=== PATIENT | male | born 1945 | race Caucasian/White ===

== ENCOUNTER 2016-10-21 22:56 | Emergency (ER) | payer MEDICARE, BC, OTHER ==
[~2016-10-21 22:56] MED LIST: ATOR1TAB19 PO; AZEL0.05 OP; AZOR5TAB4 PO; FISH500C PO; FLUTISP; REST0.05 OP; VITA100037 PO; VITA500T53 PO; [UNRECOGNIZED DRUG - OTHER] PO
[2016-10-22 00:19] LABS: BASO % 0.2 % (0.0-1.0); EOS # 0.1 K/mm3 (0.0-0.50); EOS % 1.5 % (0.0-3.0); LARGE UNSTAINED CELL # 0.2 K/mm3 (0.0-0.4); LARGE UNSTAINED CELL % 1.9 % (0.0-4.0); LYMPH # 2.1 K/mm3 (1.5-4.5); LYMPH % 22.6 % (24.0-44.0); MEAN CORPUSCULAR HEMOGLOBIN 32.7 pg (27.0-33.0); MEAN CORPUSCULAR HGB CONC 34.4 g/dl (32.0-36.5); MEAN CORPUSCULAR VOLUME 95.1 fl (80.0-96.0); MONO # 0.6 K/mm3 (0.0-0.8); MONO % 6.6 % (0.0-5.0); NEUTROPHILS # 6.3 K/mm3 (1.8-7.7); NEUTROPHILS % 67.3 % (36.0-66.0); PLATELET COUNT, AUTOMATED 145 k/mm3 (150-450); RED CELL DISTRIBUTION WIDTH 12.2 % (11.5-14.5); WHITE BLOOD COUNT 9.3 K/mm3 (4.0-10.0)
[2016-10-22 00:27] LABS: INR 0.95
[2016-10-22 00:38] LABS: ANION GAP 8 MEQ/L (8-16); BLOOD UREA NITROGEN 18 MG/DL (7-18); CALCIUM LEVEL 8.7 MG/DL (8.8-10.2); CARBON DIOXIDE LEVEL 28 MEQ/L (21-32); CHLORIDE LEVEL 106 MEQ/L (98-107); CREATININE FOR GFR 0.83 MG/DL (0.70-1.30); GLOMERULAR FILTRATION RATE > 60.0 (>42); GLUCOSE, FASTING 99 MG/DL (83-110); POTASSIUM SERUM 4.1 MEQ/L (3.5-5.1); SODIUM LEVEL 142 MEQ/L (136-145)
--- NOTE | 2016-10-22 01:30 | REPUSA ---
CLINICAL HISTORY: Dizzy. TECHNIQUE: Multiple axial CT images were obtained through the brain without IV contrast material. COMMENTS: There is normal configuration of sella turcica. There are no intra or extra-axial collections. There is no mass effect or midline shift. There is no evidence of hematoma formation. No hydrocephalus is p resent. The ventricles are symmetrical. No abnormal calcifications are present. There is diffuse age-appropriate cerebellar and cerebral atrophy with proportionally dilated ventricl es and cortical sulci. There are bilateral periventricular and subcortical white matter hypolucencies compatible with mild c hronic microvascular disease. Otherwise, no significant focal abnormalities are seen either in the posterior fossa or supratentoria l compartment. IMPRESSION: 1. Age-appropriate cerebellar and cerebral atrophy. 2. Mild chronic microvascular disease. 3. No evidence of acute intracranial pathology. Thank you for your kind referral of this patient.
[2016-10-22] MEDS ORDERED: MECLIZINE 12.5 MG TAB As Ordered ONE (02:23)
--- NOTE | 2016-10-22 03:59 | EDDOCDS ---
Physician Documentation [facility] Name: Thomas Ramos Age: 71 yrs Sex: Male : 1945 Arrival Date: 10/21/2016 Time: 22:56 Bed 8 Private MD: Rajendra Phelps Disposition: 10/22/16 03:34 Discharged to Home/Self Care. Impression: Labyrinthitis, Nocturia. - Condition is Stable. - Prescriptions for Meclizine 25 mg Oral Tablet - take 1 tablet by ORAL route every 8 hours As needed; 30 tablet. - Medication Reconciliation, Local Pharmacy Hours form. - Follow up: Rajendra Phelps; When: 1 - 2 days; Reason: Recheck today's complaints. - Problem is an ongoing problem. - Symptoms have improved. Historical: - Allergies: Erythromycin; - Home Meds: 1. Sharyn oral oral Unknown once daily 2. atorvastatin oral oral Unknown once daily 3. Gabapentin Oral Unknown once daily 4. Vitamin D Unknown Oral Unknown daily 5. Vitamin B-12 Oral Unknown daily 6. aspirin 81 mg Oral tab 1 tab once daily 7. Metoprolol Tartrate Oral Unknown once daily - PMHx: Hypertension; hyperlipidemia; Colitis; - PSHx: Cardiac Ablation; Hernia repair; - Social history: Smoking status: Cigars No barriers to communication noted, The patient speaks fluent Divehi, Speaks appropriately for age. - Family history: Not pertinent. - : The pt / caregiver states he / she is not on anticoagulants. Home medication list is obtained from the patient. - Exposure Risk Screening:: None identified. Vital Signs: 10/21 22:58 BP 134 / 66; Pulse 78; Resp 18 S; Temp 97.1(O); Pulse Ox 99% on R/A; Weight 87.09 kg / dd6 192 lbs (R); Height 6 ft. 0 in. (182.88 cm); 23:17 BP 135 / 78 (auto/); kas2 23:19 Pulse 62 MON; Pulse Ox 96% ; kas2 23:19 Resp 20; Temp 98.0(O); Pain 0/10; kas2 23:32 BP 120 / 71 (auto/); kas2 23:32 Pulse 64 MON; Pulse Ox 92% ; kas2 23:47 BP 122 / 71 (auto/); kas2 23:47 Pulse 68 MON; Pulse Ox 94% ; kas2 10/22 00:02 BP 139 / 80 (auto/); kas2 00:02 Pulse 66 MON; Pulse Ox 96% ; kas2 00:12 BP 117 / 67 (auto/); kas2 00:12 Pulse 64 MON; Pulse Ox 94% ; kas2 00:13 BP 130 / 75 (auto/); kas2 00:13 Pulse 64 MON; Pulse Ox 95% ; kas2 00:14 BP 132 / 78 (auto/); kas2 00:14 Pulse 62 MON; Pulse Ox 95% ; kas2 00:17 BP 121 / 71 (auto/); kas2 00:17 Pulse 66 MON; Pulse Ox 96% ; kas2 00:22 BP 117 / 67 LA Supine; Pulse 62; kas2 00:22 BP 130 / 75 LA Sitting; Pulse 69; kas2 00:22 BP 132 / 78 LA Standing; Pulse 79; kas2 00:32 BP 133 / 77 (auto/); kas2 00:32 Pulse 70 MON; kas2 00:47 BP 107 / 67 (auto/); kas2 00:47 Pulse 64 MON; Pulse Ox 96% ; kas2 01:02 BP 109 / 65 (auto/); kas2 01:02 Pulse 64 MON; Pulse Ox 94% ; kas2 01:17 BP 121 / 80 (auto/); kas2 01:17 Pulse 66 MON; Pulse Ox 94% ; kas2 01:32 BP 114 / 67 (auto/); kas2 01:32 Pulse 68 MON; Pulse Ox 94% ; kas2 03:27 BP 128 / 65; Pulse 62; Resp 20; Temp 97.2(O); Pulse Ox 98% on R/A; Pain 0/10; kas2 03:56 BP 168 / 74; Pulse 62; Resp 20; Temp 98.3(O); Pulse Ox 99% on R/A; Pain 0/10; kas2 10/21 22:58 Body Mass Index 26.04 (87.09 kg, 182.88 cm) dd6 MDM: 10/21 23:11 ECG WITH READING ER PHYS+CARDIAG ordered. EDMS 23:32 Call Center Operator/Pulse Ox/q 15 min VS ordered. le 23:32 Accucheck ordered. le 23:32 IV Saline Lock ordered. le 23:32 Rhythm Strip to chart ordered. le 23:32 Orthostatic VS ordered. le 23:33 Basic Metabolic Profile Ordered. EDMS 23:33 CBC with Diff Ordered. EDMS 23:33 Partial Thromboplastin Time Ordered. EDMS 23:33 Prothrombin Time Profile\E\INR Ordered. EDMS 23:33 CT Head Without Contrast Ordered. EDMS 23:33 Chest, 2 View (pa\E\lat) Ordered. EDMS 10/22 01:21 Financial registration complete. hs2 01:30 [facility] Payment Agreement was scanned into [employer] and attached to record. hs2 01:59 Basic Metabolic Profile Reviewed. cs11 01:59 CBC with Diff Reviewed. cs11 01:59 Partial Thromboplastin Time Reviewed. cs11 01:59 Prothrombin Time Profile\E\INR Reviewed. cs11 01:59 Fingerstick Blood Sugar Reviewed. cs11 01:59 CT Head Without Contrast Reviewed. cs11 02:11 NS 0.9% 1000 ml IV at bolus once ordered. cs11 02:11 Meclizine 50 mg PO once ordered. cs11 Point of Care Testing: Blood Glucose: 00:22 Blood Glucose: 91 mg/dL; kas2 Ranges: Administered Medications: 02:27 Drug: NS 0.9% 1000 ml [sodium chloride 0.9 % intravenous solution] Route: IV; Rate: kas2 bolus; Site: right antecubital; 03:26 Follow up: IV Status: Completed infusion; IV Intake: 1000ml kas2 02:27 Drug: Meclizine 50 mg [meclizine 12.5 mg tablet (4 tabs)] Route: PO; kas2 Signatures: [facility] EDTN Evelyn Gil, FREDERICK DIPLOMATIC INTERPRETER/TRANSLATORNatanael Saha, DO cs11 Gilmer VelázquezRN RN Carol Hicks, Reg Reg hs2 Marj Hernandez RN RN kas2 The chart was reviewed and I authenticate all verbal orders and agree with the evaluation and treatment provided.Attachments: 01:30 [facility] Payment Agreement hs2 MTDD
--- NOTE | 2016-10-22 03:59 | EDDOCDS ---
Nurse's Notes [facility] Name: Thomas Ramos Age: 71 yrs Sex: Male : 1945 Arrival Date: 10/21/2016 Time: 22:56 Bed 8 Private MD: Rajendra Phelps Diagnosis: Labyrinthitis;Nocturia Presentation: 10/21 23:01 Presenting complaint: Patient states: Patient reports having blurriness and dizziness. b Called both primary and animal assisted therapist whom stated that he should be seen. Adult Sepsis Screening: The patient does not have new or worsening altered mentation. Patient's respiratory rate is less than 22. Systolic blood pressure is greater than 100. Patient has a qSOFA score of 0- Negative Sepsis Screen. Suicide/Homicide risk assessment- the patient denies having any suicidal and/or homicidal ideations and does not present with any other emotional, behavioral or mental health complaints. Status: Patient is not a sales service rep or dependent. Transition of care: patient was not received from another setting of care. 23:01 Acuity: VALERIE Level 3 [facility] 23:01 Method Of Arrival: Walkin/Carried/Asstd [facility] Triage Assessment: 23:04 General: Appears in no apparent distress. Pain: Denies pain. Neurological: Level of [facility] Consciousness is awake, alert, obeys commands, Oriented to person, place, time, Speech is normal, Facial symmetry appears normal, Facial symmetry: tongue is midline. Respiratory: Airway is patent Respiratory effort is even, unlabored, Respiratory pattern is regular, symmetrical. Derm: Skin is pink, warm & dry. Musculoskeletal: Range of motion intact in all extremities. Historical: - Allergies: Erythromycin; - Home Meds: 1. Sharyn oral oral Unknown once daily 2. atorvastatin oral oral Unknown once daily 3. Gabapentin Oral Unknown once daily 4. Vitamin D Unknown Oral Unknown daily 5. Vitamin B-12 Oral Unknown daily 6. aspirin 81 mg Oral tab 1 tab once daily 7. Metoprolol Tartrate Oral Unknown once daily - PMHx: Hypertension; hyperlipidemia; Colitis; - PSHx: Cardiac Ablation; Hernia repair; - Social history: Smoking status: Cigars No barriers to communication noted, The patient speaks fluent Swazi, Speaks appropriately for age. - Family history: Not pertinent. - : The pt / caregiver states he / she is not on anticoagulants. Home medication list is obtained from the patient. - Exposure Risk Screening:: None identified. Screenin/15 00:21 Screening information is obtained from the patient. Fall risk: No risks identified. kas2 Assistance ADL's: requires no assistance with activities of daily living. Abuse/DV Screen: The patient / caregiver reports he/she is: not in a situation that causes fear, pain or injury. Nutritional screening: No deficits noted. Advance Directives: Currently, there is no health care proxy. There is no active DNR order. There is no living will. There is no Power of National Stormwater Leader. home support is adequate. Assessment: 10/21 23:30 General: Appears in no apparent distress, comfortable, well nourished, well groomed, kas2 Behavior is appropriate for age, cooperative. Pain: Denies pain. Neurological: Level of Consciousness is awake, alert, Oriented to person, place, time. Cardiovascular: Capillary refill < 3 seconds Heart tones S1 S2 present Rhythm is sinus rhythm No ectopy. Respiratory: Airway is patent Respiratory effort is even, unlabored, Respiratory pattern is regular, symmetrical, Breath sounds are clear bilaterally. Derm: Skin is intact, is healthy with good turgor, Skin is dry, Skin is pink, warm & dry. Skin temperature is warm. 10/22 00:45 General: Patient sitting up in bed. Denies pain or discomfort at this time. Appears kas2 comfortable. No apparent distress noted. Call santana within reach. Will continue to monitor at this time.. 01:50 General: Appears in no apparent distress, comfortable, Behavior is appropriate for age, kas2 cooperative. Pain: Denies pain. Neurological: Level of Consciousness is awake, alert, Oriented to person, place, time. Cardiovascular: Rhythm is sinus rhythm No ectopy. Respiratory: Airway is patent Respiratory effort is even, unlabored, Respiratory pattern is regular, symmetrical. Derm: Skin Skin is dry, Skin is pink, warm & dry. Skin temperature is warm. 02:56 General: Patient sleeping at this time. No apparent distress. Appears comfortable. kas2 Airway patent. Respiratory effort even and unlabored. Call santana within reach. Will continue to monitor.. 03:10 General: Appears in no apparent distress, comfortable, Behavior is appropriate for age, kas2 cooperative. Pain: Denies pain. Neurological: Level of Consciousness is awake, alert, Oriented to person, place, time. Cardiovascular: Rhythm is sinus rhythm No ectopy. Respiratory: Airway is patent Respiratory effort is even, unlabored, Respiratory pattern is regular, symmetrical, Breath sounds are clear. Derm: Skin is intact, Skin is dry, Skin is pink, warm & dry. Skin temperature is warm. Vital Signs: 10/21 22:58 BP 134 / 66; Pulse 78; Resp 18 S; Temp 97.1(O); Pulse Ox 99% on R/A; Weight 87.09 kg dd6 (R); Height 6 ft. 0 in. (182.88 cm); 23:17 BP 135 / 78 (auto/); kas2 23:19 Pulse 62 MON; Pulse Ox 96% ; kas2 23:19 Resp 20; Temp 98.0(O); Pain 0/10; kas2 23:32 BP 120 / 71 (auto/); kas2 23:32 Pulse 64 MON; Pulse Ox 92% ; kas2 23:47 BP 122 / 71 (auto/); kas2 23:47 Pulse 68 MON; Pulse Ox 94% ; kas2 10/22 00:02 BP 139 / 80 (auto/); kas2 00:02 Pulse 66 MON; Pulse Ox 96% ; kas2 00:12 BP 117 / 67 (auto/); kas2 00:12 Pulse 64 MON; Pulse Ox 94% ; kas2 00:13 BP 130 / 75 (auto/); kas2 00:13 Pulse 64 MON; Pulse Ox 95% ; kas2 00:14 BP 132 / 78 (auto/); kas2 00:14 Pulse 62 MON; Pulse Ox 95% ; kas2 00:17 BP 121 / 71 (auto/); kas2 00:17 Pulse 66 MON; Pulse Ox 96% ; kas2 00:22 BP 117 / 67 LA Supine; Pulse 62; kas2 00:22 BP 130 / 75 LA Sitting; Pulse 69; kas2 00:22 BP 132 / 78 LA Standing; Pulse 79; kas2 00:32 BP 133 / 77 (auto/); kas2 00:32 Pulse 70 MON; kas2 00:47 BP 107 / 67 (auto/); kas2 00:47 Pulse 64 MON; Pulse Ox 96% ; kas2 01:02 BP 109 / 65 (auto/); kas2 01:02 Pulse 64 MON; Pulse Ox 94% ; kas2 01:17 BP 121 / 80 (auto/); kas2 01:17 Pulse 66 MON; Pulse Ox 94% ; kas2 01:32 BP 114 / 67 (auto/); kas2 01:32 Pulse 68 MON; Pulse Ox 94% ; kas2 03:27 BP 128 / 65; Pulse 62; Resp 20; Temp 97.2(O); Pulse Ox 98% on R/A; Pain 0/10; kas2 03:56 BP 168 / 74; Pulse 62; Resp 20; Temp 98.3(O); Pulse Ox 99% on R/A; Pain 0/10; kas2 10/21 22:58 Body Mass Index 26.04 (87.09 kg, 182.88 cm) dd6 Vitals: 10/21 22:58 Log In Time: October 21, 2016 at 22:56. RN notified that patient meets Red Flag dd6 criteria. ED Course: 22:58 Patient visited by Johnson Carrion PCA. dd6 22:58 Rajendra Phelps is Private Physician. dd6 22:58 Patient moved to Waiting dd6 23:02 Triage Initiated jmb 23:06 Marj Hernandez RN is Primary Nurse. jmb 23:06 Patient moved to 8 jmb 23:28 Patient visited by Marj Hernandez RN. kas2 23:36 Natanael Valadez DO is Attending Physician. cs11 23:36 Patient visited by Natanael Valadez DO. cs11 10/22 00:07 Patient visited by Marj Hernandez RN. kas2 00:08 Basic Metabolic Profile Sent. nn1 00:08 CBC with Diff Sent. nn1 00:08 Partial Thromboplastin Time Sent. nn1 00:08 Prothrombin Time Profile\E\INR Sent. nn1 00:09 Inserted saline lock: 18 gauge in right antecubital area and blood collected. The nn1 patient tolerated the procedure well. 00:22 Patient visited by Whitney Gao, Manual Equipment Mechanic. jlm 00:22 No procedures done that require assistance. kas2 00:22 EKG done. (by ED staff). Reviewed by Natanael Valadez DO. jlm 00:23 Patient visited by Marj Hernandez RN. kas2 00:23 property assessment monitor on. Pulse ox on. NIBP on. kas2 00:54 Patient visited by Marj Hernandez RN. kas2 01:30 Patient visited by Carol Calabrese, Reg. hs2 01:30 [facility] Payment Agreement was scanned into [employer] and attached to record. hs2 01:35 CT Head Without Contrast Returned. EDMS 02:03 Patient visited by Marj Hernandez RN. kas2 02:36 Patient visited by Marj Hernandez RN. kas2 03:28 Patient visited by Marj Hernandez RN. kas2 03:34 Rajendra Phelps is Referral Physician. cs11 03:56 The patient / caregiver is instructed regarding the plan of care and ED course. kas2 03:56 Discontinued IV bleeding controlled, pressure dressing applied, No redness/swelling at kas2 site. 03:58 Patient visited by Marj Hernandez RN. kas2 Administered Medications: 02:27 Drug: NS 0.9% 1000 ml [sodium chloride 0.9 % intravenous solution] Route: IV; Rate: kas2 bolus; Site: right antecubital; 03:26 Follow up: IV Status: Completed infusion; IV Intake: 1000ml kas2 02:27 Drug: Meclizine 50 mg [meclizine 12.5 mg tablet (4 tabs)] Route: PO; kas2 Point of Care Testing: Blood Glucose: 00:22 Blood Glucose: 91 mg/dL; kas2 Ranges: Intake: 03:26 IV: 1000.00ml; Total: 1000.00ml. [facility] Order Results: Lab Order: Basic Metabolic Profile; SPEC'M 10/22/16 00:06 Test: GLUCOSE, FASTING; Value: 99; Range: 83-110; Units: MG/DL; Status: F Test: BLOOD UREA NITROGEN; Value: 18; Range: 7-18; Units: MG/DL; Status: F Test: CREATININE FOR GFR; Value: 0.83; Range: 0.70-1.30; Units: MG/DL; Status: F Test: GLOMERULAR FILTRATION RATE; Value: > 60.0; Range: >42; Status: F Test: SODIUM LEVEL; Value: 142; Range: 136-145; Units: MEQ/L; Status: F Test: POTASSIUM SERUM; Value: 4.1; Range: 3.5-5.1; Units: MEQ/L; Status: F Test: CHLORIDE LEVEL; Value: 106; Range: 98-107; Units: MEQ/L; Status: F Test: CARBON DIOXIDE LEVEL; Value: 28; Range: 21-32; Units: MEQ/L; Status: F Test: ANION GAP; Value: 8; Range: 8-16; Units: MEQ/L; Status: F Test: CALCIUM LEVEL; Value: 8.7; Range: 8.8-10.2; Abnormal: Below low normal; Units: MG/DL; Status: F Test Note: ; Units are mL/min/1.73 m2 Chronic Kidney Disease Staging per NKF: Stage I & II GFR >=60 Normal to Mildly Decreased Stage III GFR 30-59 Moderately Decreased Stage IV GFR 15-29 Severely Decreased Stage V GFR <15 Very Little GFR Left ESRD GFR <15 on DELIVERY REPRESENTATIVE Lab Order: CBC with Diff; SPEC'M 10/22/16 00:06 Test: WHITE BLOOD COUNT; Value: 9.3; Range: 4.0-10.0; Units: K/mm3; Status: F Test: RED BLOOD COUNT; Value: 4.83; Range: 4.30-6.10; Units: M/mm3; Status: F Test: HEMOGLOBIN; Value: 15.8; Range: 14.0-18.0; Units: g/dl; Status: F Test: HEMATOCRIT; Value: 45.9; Range: 42.0-52.0; Units: %; Status: F Test: MEAN CORPUSCULAR VOLUME; Value: 95.1; Range: 80.0-96.0; Units: fl; Status: F Test: MEAN CORPUSCULAR HEMOGLOBIN; Value: 32.7; Range: 27.0-33.0; Units: pg; Status: F Test: MEAN CORPUSCULAR HGB CONC; Value: 34.4; Range: 32.0-36.5; Units: g/dl; Status: F Test: RED CELL DISTRIBUTION WIDTH; Value: 12.2; Range: 11.5-14.5; Units: %; Status: F Test: PLATELET COUNT, AUTOMATED; Value: 145; Range: 150-450; Abnormal: Below low normal; Units: k/mm3; Status: F Test: NEUTROPHILS %; Value: 67.3; Range: 36.0-66.0; Abnormal: Above high normal; Units: %; Status: F Test: LYMPH %; Value: 22.6; Range: 24.0-44.0; Abnormal: Below low normal; Units: %; Status: F Test: MONO %; Value: 6.6; Range: 0.0-5.0; Abnormal: Above high normal; Units: %; Status: F Test: EOS %; Value: 1.5; Range: 0.0-3.0; Units: %; Status: F Test: BASO %; Value: 0.2; Range: 0.0-1.0; Units: %; Status: F Test: LARGE UNSTAINED CELL %; Value: 1.9; Range: 0.0-4.0; Units: %; Status: F Test: NEUTROPHILS #; Value: 6.3; Range: 1.8-7.7; Units: K/mm3; Status: F Test: LYMPH #; Value: 2.1; Range: 1.5-4.5; Units: K/mm3; Status: F Test: MONO #; Value: 0.6; Range: 0.0-0.8; Units: K/mm3; Status: F Test: EOS #; Value: 0.1; Range: 0.0-0.50; Units: K/mm3; Status: F Test: BASO #; Value: 0.0; Range: 0.0-0.2; Units: K/mm3; Status: F Test: LARGE UNSTAINED CELL #; Value: 0.2; Range: 0.0-0.4; Units: K/mm3; Status: F Lab Order: Partial Thromboplastin Time; SPEC'M 10/22/16 00:06 Test: PARTIAL THROMBOPLASTIN TIME; Value: 26.4; Range: 26.6-37.1; Abnormal: Below low normal; Units: SECONDS; Status: F Lab Order: Prothrombin Time Profile\E\INR; SPEC'M 10/22/16 00:06 Test: PROTHROMBIN TIME; Value: 12.8; Range: 12.3-14.5; Units: SECONDS; Status: F Test: INR; Value: 0.95; Status: F Test Note: ; THERAPUTIC HUMAN INR VALUES INDICATIONS NORMAL RANGES PROPHYLAXIS/TREATMENT OF: VENOUS THROMBOSIS 2.0-3.0 PULMONARY EMBOLISM 2.0-3.0 PREVENTION OF SYSTEMIC EMBOLISM FROM: TISSUE HEART VALVES 2.0-3.0 ACUTE MYOCARDIAL INFARCTION 2.0-3.0 VALVULAR HEART DISEASE 2.0-3.0 ATRIAL FIBRILLATION 2.0-3.0 MECHANICAL VALVES(HIGH RISK) 2.5-3.5 RECURRENT MYOCARDIAL INFARCTION 2.5-3.5 Lab Order: Fingerstick Blood Sugar; SPEC'M 10/22/16 00:12 Test: BEDSIDE GLUCOSE; Value: 91; Range: 83-110; Units: MG/DL; Status: F Radiology Order: CT Head Without Contrast Test: CT Head Without Contrast REASON FOR EXAMINATION: dizziness, blurred vision; ; CLINICAL HISTORY: Dizzy.; TECHNIQUE: Multiple axial CT images were obtained through the brain without IV contrast material.; COMMENTS:; There is normal configuration of sella turcica. There are no intra or extra-axial collections. There; is no mass effect or midline shift. There is no evidence of hematoma formation. No hydrocephalus is p; resent. The ventricles are symmetrical. No abnormal calcifications are present.; There is diffuse age-appropriate cerebellar and cerebral atrophy with proportionally dilated ventricl; es and cortical sulci.; There are bilateral periventricular and subcortical white matter hypolucencies compatible with mild c; hronic microvascular disease.; Otherwise, no significant focal abnormalities are seen either in the posterior fossa or supratentoria; l compartment.; IMPRESSION:; 1. Age-appropriate cerebellar and cerebral atrophy.; 2. Mild chronic microvascular disease.; 3. No evidence of acute intracranial pathology.; Thank you for your kind referral of this patient.; ; ; Outcome: 03:34 Discharge ordered by Provider. 11 03:55 Discharge Assessment: patient administered narcotics - no. The following High Risk [facility] Discharge criteria are identified: None. Discharged to home ambulatory. Condition: good Condition: stable Condition: improved. CT Study completed. Property :Personal belongings accompany Pt. 03:58 Patient left the ED. [facility] Signatures: Dispatcher [employer] EDMS Johnson Carrion, DAUNE MOTOR COACH CHAUFFEUR dd6 Natanael Valadez, DO cs11 Gilmer VelázquezRN RN Whitney Rajan, Manual Equipment Mechanic Unit jlm Bing Leung,RN RN nn1 Carol Calabrese, Reg Reg hs2 Hernandez,Marj,RN RN kas2 AICHAD
--- NOTE | 2016-10-22 07:38 | ECGEPIP ---
Stationary ECG Study [facility] ED Test Date: 2016-10-22 Pat Name: TIFFANIE TALBOT Department: Room: - Gender: M Manager Of Compliance: jillian : 1945 Requested By: ARPAN ARNETT Order Number: [id number] Reading MD: Peggy Rogers Measurements Intervals [place] Rate: 63 P: -41 OR: 110 QRS: 16 QRSD: 96 T: 65 QT: 388 QTc: 399 Interpretive Statements SINUS RHYTHM WITH SHORT OR INTERVAL SUBTLE ST CHANGES IN INFERIOR LEADS REQUIRE CLINICAL CORRELATION FOR ISCHEMIA NO PRIOR FOR COMPARISON Electronically Signed On 10-22-2016 7:37:53 EST by Peggy Rogers
--- NOTE | 2016-10-22 08:21 | REP ---
Clinical: Vertigo and dizziness . Comparison: 06/22/2010 . Technique: PA and lateral. Findings: The mediastinum and cardiac silhouette are normal. The lung malcolm demonstrate chronic changes without obvious acute consolidation, effusion, or pneumothorax. On lateral radiograph, I cannot exclude a subtle nodular density in the infrahilar region which may warrant chest CT follow-up. The skeletal structures are intact and normal. Impression: 1. Cannot exclude subtle infrahilar density on lateral radiograph. Chest CT should be considered for further evaluation. 2. Otherwise stable chronic changes. Signed by Fernando Fitzgerald MD 10/22/2016 08:12 A
--- NOTE | 2016-10-24 04:59 | EDDOCDS ---
Physician Documentation [facility] Name: Thomas Ramos Age: 71 yrs Sex: Male : 1945 Arrival Date: 10/21/2016 Time: 22:56 Bed 8 Private MD: Rajendra Phelps Disposition: 10/22/16 03:34 Discharged to Home/Self Care. Impression: Labyrinthitis, Nocturia. - Condition is Stable. - Prescriptions for Meclizine 25 mg Oral Tablet - take 1 tablet by ORAL route every 8 hours As needed; 30 tablet. - Medication Reconciliation, Local Pharmacy Hours form. - Follow up: Rajendra Phelps; When: 1 - 2 days; Reason: Recheck today's complaints. - Problem is an ongoing problem. - Symptoms have improved. Historical: - Allergies: Erythromycin; - Home Meds: 1. Sharyn oral oral Unknown once daily 2. atorvastatin oral oral Unknown once daily 3. Gabapentin Oral Unknown once daily 4. Vitamin D Unknown Oral Unknown daily 5. Vitamin B-12 Oral Unknown daily 6. aspirin 81 mg Oral tab 1 tab once daily 7. Metoprolol Tartrate Oral Unknown once daily - PMHx: Hypertension; hyperlipidemia; Colitis; - PSHx: Cardiac Ablation; Hernia repair; - Social history: Smoking status: Cigars No barriers to communication noted, The patient speaks fluent Luxembourgish, Speaks appropriately for age. - Family history: Not pertinent. - : The pt / caregiver states he / she is not on anticoagulants. Home medication list is obtained from the patient. - Exposure Risk Screening:: None identified. Vital Signs: 10/21 22:58 BP 134 / 66; Pulse 78; Resp 18 S; Temp 97.1(O); Pulse Ox 99% on R/A; Weight 87.09 kg / dd6 192 lbs (R); Height 6 ft. 0 in. (182.88 cm); 23:17 BP 135 / 78 (auto/); kas2 23:19 Pulse 62 MON; Pulse Ox 96% ; kas2 23:19 Resp 20; Temp 98.0(O); Pain 0/10; kas2 23:32 BP 120 / 71 (auto/); kas2 23:32 Pulse 64 MON; Pulse Ox 92% ; kas2 23:47 BP 122 / 71 (auto/); kas2 23:47 Pulse 68 MON; Pulse Ox 94% ; kas2 10/22 00:02 BP 139 / 80 (auto/); kas2 00:02 Pulse 66 MON; Pulse Ox 96% ; kas2 00:12 BP 117 / 67 (auto/); kas2 00:12 Pulse 64 MON; Pulse Ox 94% ; kas2 00:13 BP 130 / 75 (auto/); kas2 00:13 Pulse 64 MON; Pulse Ox 95% ; kas2 00:14 BP 132 / 78 (auto/); kas2 00:14 Pulse 62 MON; Pulse Ox 95% ; kas2 00:17 BP 121 / 71 (auto/); kas2 00:17 Pulse 66 MON; Pulse Ox 96% ; kas2 00:22 BP 117 / 67 LA Supine; Pulse 62; kas2 00:22 BP 130 / 75 LA Sitting; Pulse 69; kas2 00:22 BP 132 / 78 LA Standing; Pulse 79; kas2 00:32 BP 133 / 77 (auto/); kas2 00:32 Pulse 70 MON; kas2 00:47 BP 107 / 67 (auto/); kas2 00:47 Pulse 64 MON; Pulse Ox 96% ; kas2 01:02 BP 109 / 65 (auto/); kas2 01:02 Pulse 64 MON; Pulse Ox 94% ; kas2 01:17 BP 121 / 80 (auto/); kas2 01:17 Pulse 66 MON; Pulse Ox 94% ; kas2 01:32 BP 114 / 67 (auto/); kas2 01:32 Pulse 68 MON; Pulse Ox 94% ; kas2 03:27 BP 128 / 65; Pulse 62; Resp 20; Temp 97.2(O); Pulse Ox 98% on R/A; Pain 0/10; kas2 03:56 BP 168 / 74; Pulse 62; Resp 20; Temp 98.3(O); Pulse Ox 99% on R/A; Pain 0/10; kas2 10/21 22:58 Body Mass Index 26.04 (87.09 kg, 182.88 cm) dd6 MDM: 10/21 23:11 ECG WITH READING ER PHYS+CARDIAG ordered. EDMS 23:32 Commercial Representative/Pulse Ox/q 15 min VS ordered. le 23:32 Accucheck ordered. le 23:32 IV Saline Lock ordered. le 23:32 Rhythm Strip to chart ordered. le 23:32 Orthostatic VS ordered. le 23:33 Basic Metabolic Profile Ordered. EDMS 23:33 CBC with Diff Ordered. EDMS 23:33 Partial Thromboplastin Time Ordered. EDMS 23:33 Prothrombin Time Profile\E\INR Ordered. EDMS 23:33 CT Head Without Contrast Ordered. EDMS 23:33 Chest, 2 View (pa\E\lat) Ordered. EDMS 10/22 01:21 Financial registration complete. hs2 01:30 [facility] Payment Agreement was scanned into [employer] and attached to record. hs2 01:59 Basic Metabolic Profile Reviewed. cs11 01:59 CBC with Diff Reviewed. cs11 01:59 Partial Thromboplastin Time Reviewed. cs11 01:59 Prothrombin Time Profile\E\INR Reviewed. cs11 01:59 Fingerstick Blood Sugar Reviewed. cs11 01:59 CT Head Without Contrast Reviewed. cs11 02:11 NS 0.9% 1000 ml IV at bolus once ordered. cs11 02:11 Meclizine 50 mg PO once ordered. cs11 06:56 ECG WITH READING ER PHYS ordered. EDMS 09:10 T-Sheet-- Draft Copy was scanned into [employer] and attached to record. [facility] 10/23 08:13 ECG/EKG was scanned into [employer] and attached to record. Point of Care Testing: Blood Glucose: 10/22 00:22 Blood Glucose: 91 mg/dL; kas2 Ranges: Administered Medications: 02:27 Drug: NS 0.9% 1000 ml [sodium chloride 0.9 % intravenous solution] Route: IV; Rate: kas2 bolus; Site: right antecubital; 03:26 Follow up: IV Status: Completed infusion; IV Intake: 1000ml kas2 02:27 Drug: Meclizine 50 mg [meclizine 12.5 mg tablet (4 tabs)] Route: PO; kas2 Signatures: Dispatcher [employer] EDMS Indira Guy, Reg Reg gb Evelyn Gil, FREDERICK OVALLEP Natanael Guillermo DO DO cs11 Gilmer VelázquezRN RN Carol Hicks, Reg Reg hs2 Marj Hernandez RN RN kas Peggy Lowe [facility] The chart was reviewed and I authenticate all verbal orders and agree with the evaluation and treatment provided.Attachments: 01:30 [facility] Payment Agreement hs2 09:10 T-Sheet-- Draft Copy [facility] 10/23 08:13 ECG/EKG gb Chart Complete MTDD
--- NOTE | 2016-10-24 04:59 | EDDOCDS ---
Nurse's Notes [facility] Name: Thomas Ramos Age: 71 yrs Sex: Male : 1945 Arrival Date: 10/21/2016 Time: 22:56 Bed 8 Private MD: Rajendra Phelps Diagnosis: Labyrinthitis;Nocturia Presentation: 10/21 23:01 Presenting complaint: Patient states: Patient reports having blurriness and dizziness. b Called both primary and structural test engineer whom stated that he should be seen. Adult Sepsis Screening: The patient does not have new or worsening altered mentation. Patient's respiratory rate is less than 22. Systolic blood pressure is greater than 100. Patient has a qSOFA score of 0- Negative Sepsis Screen. Suicide/Homicide risk assessment- the patient denies having any suicidal and/or homicidal ideations and does not present with any other emotional, behavioral or mental health complaints. Status: Patient is not a home service advisor or dependent. Transition of care: patient was not received from another setting of care. 23:01 Acuity: VALERIE Level 3 [facility] 23:01 Method Of Arrival: Walkin/Carried/Asstd [facility] Triage Assessment: 23:04 General: Appears in no apparent distress. Pain: Denies pain. Neurological: Level of [facility] Consciousness is awake, alert, obeys commands, Oriented to person, place, time, Speech is normal, Facial symmetry appears normal, Facial symmetry: tongue is midline. Respiratory: Airway is patent Respiratory effort is even, unlabored, Respiratory pattern is regular, symmetrical. Derm: Skin is pink, warm & dry. Musculoskeletal: Range of motion intact in all extremities. Historical: - Allergies: Erythromycin; - Home Meds: 1. Sharyn oral oral Unknown once daily 2. atorvastatin oral oral Unknown once daily 3. Gabapentin Oral Unknown once daily 4. Vitamin D Unknown Oral Unknown daily 5. Vitamin B-12 Oral Unknown daily 6. aspirin 81 mg Oral tab 1 tab once daily 7. Metoprolol Tartrate Oral Unknown once daily - PMHx: Hypertension; hyperlipidemia; Colitis; - PSHx: Cardiac Ablation; Hernia repair; - Social history: Smoking status: Cigars No barriers to communication noted, The patient speaks fluent Malagasy, Speaks appropriately for age. - Family history: Not pertinent. - : The pt / caregiver states he / she is not on anticoagulants. Home medication list is obtained from the patient. - Exposure Risk Screening:: None identified. Screenin/15 00:21 Screening information is obtained from the patient. Fall risk: No risks identified. kas2 Assistance ADL's: requires no assistance with activities of daily living. Abuse/DV Screen: The patient / caregiver reports he/she is: not in a situation that causes fear, pain or injury. Nutritional screening: No deficits noted. Advance Directives: Currently, there is no health care proxy. There is no active DNR order. There is no living will. There is no Power of Procurement Representative. home support is adequate. Assessment: 10/21 23:30 General: Appears in no apparent distress, comfortable, well nourished, well groomed, kas2 Behavior is appropriate for age, cooperative. Pain: Denies pain. Neurological: Level of Consciousness is awake, alert, Oriented to person, place, time. Cardiovascular: Capillary refill < 3 seconds Heart tones S1 S2 present Rhythm is sinus rhythm No ectopy. Respiratory: Airway is patent Respiratory effort is even, unlabored, Respiratory pattern is regular, symmetrical, Breath sounds are clear bilaterally. Derm: Skin is intact, is healthy with good turgor, Skin is dry, Skin is pink, warm & dry. Skin temperature is warm. 10/22 00:45 General: Patient sitting up in bed. Denies pain or discomfort at this time. Appears kas2 comfortable. No apparent distress noted. Call santana within reach. Will continue to monitor at this time.. 01:50 General: Appears in no apparent distress, comfortable, Behavior is appropriate for age, kas2 cooperative. Pain: Denies pain. Neurological: Level of Consciousness is awake, alert, Oriented to person, place, time. Cardiovascular: Rhythm is sinus rhythm No ectopy. Respiratory: Airway is patent Respiratory effort is even, unlabored, Respiratory pattern is regular, symmetrical. Derm: Skin Skin is dry, Skin is pink, warm & dry. Skin temperature is warm. 02:56 General: Patient sleeping at this time. No apparent distress. Appears comfortable. kas2 Airway patent. Respiratory effort even and unlabored. Call santana within reach. Will continue to monitor.. 03:10 General: Appears in no apparent distress, comfortable, Behavior is appropriate for age, kas2 cooperative. Pain: Denies pain. Neurological: Level of Consciousness is awake, alert, Oriented to person, place, time. Cardiovascular: Rhythm is sinus rhythm No ectopy. Respiratory: Airway is patent Respiratory effort is even, unlabored, Respiratory pattern is regular, symmetrical, Breath sounds are clear. Derm: Skin is intact, Skin is dry, Skin is pink, warm & dry. Skin temperature is warm. Vital Signs: 10/21 22:58 BP 134 / 66; Pulse 78; Resp 18 S; Temp 97.1(O); Pulse Ox 99% on R/A; Weight 87.09 kg dd6 (R); Height 6 ft. 0 in. (182.88 cm); 23:17 BP 135 / 78 (auto/); kas2 23:19 Pulse 62 MON; Pulse Ox 96% ; kas2 23:19 Resp 20; Temp 98.0(O); Pain 0/10; kas2 23:32 BP 120 / 71 (auto/); kas2 23:32 Pulse 64 MON; Pulse Ox 92% ; kas2 23:47 BP 122 / 71 (auto/); kas2 23:47 Pulse 68 MON; Pulse Ox 94% ; kas2 10/22 00:02 BP 139 / 80 (auto/); kas2 00:02 Pulse 66 MON; Pulse Ox 96% ; kas2 00:12 BP 117 / 67 (auto/); kas2 00:12 Pulse 64 MON; Pulse Ox 94% ; kas2 00:13 BP 130 / 75 (auto/); kas2 00:13 Pulse 64 MON; Pulse Ox 95% ; kas2 00:14 BP 132 / 78 (auto/); kas2 00:14 Pulse 62 MON; Pulse Ox 95% ; kas2 00:17 BP 121 / 71 (auto/); kas2 00:17 Pulse 66 MON; Pulse Ox 96% ; kas2 00:22 BP 117 / 67 LA Supine; Pulse 62; kas2 00:22 BP 130 / 75 LA Sitting; Pulse 69; kas2 00:22 BP 132 / 78 LA Standing; Pulse 79; kas2 00:32 BP 133 / 77 (auto/); kas2 00:32 Pulse 70 MON; kas2 00:47 BP 107 / 67 (auto/); kas2 00:47 Pulse 64 MON; Pulse Ox 96% ; kas2 01:02 BP 109 / 65 (auto/); kas2 01:02 Pulse 64 MON; Pulse Ox 94% ; kas2 01:17 BP 121 / 80 (auto/); kas2 01:17 Pulse 66 MON; Pulse Ox 94% ; kas2 01:32 BP 114 / 67 (auto/); kas2 01:32 Pulse 68 MON; Pulse Ox 94% ; kas2 03:27 BP 128 / 65; Pulse 62; Resp 20; Temp 97.2(O); Pulse Ox 98% on R/A; Pain 0/10; kas2 03:56 BP 168 / 74; Pulse 62; Resp 20; Temp 98.3(O); Pulse Ox 99% on R/A; Pain 0/10; kas2 10/21 22:58 Body Mass Index 26.04 (87.09 kg, 182.88 cm) dd6 Vitals: 10/21 22:58 Log In Time: October 21, 2016 at 22:56. RN notified that patient meets Red Flag dd6 criteria. ED Course: 22:58 Patient visited by Johnson Carrion PCA. dd6 22:58 Rajendra Phelps is Private Physician. dd6 22:58 Patient moved to Waiting dd6 23:02 Triage Initiated jmb 23:06 Marj Hernandez RN is Primary Nurse. jmb 23:06 Patient moved to 8 jmb 23:28 Patient visited by Marj Hernandez RN. kas2 23:36 Natanael Arnett DO is Attending Physician. cs11 23:36 Patient visited by Natanael Arnett DO. cs11 10/22 00:07 Patient visited by Marj Hernandez RN. kas2 00:08 Basic Metabolic Profile Sent. nn1 00:08 CBC with Diff Sent. nn1 00:08 Partial Thromboplastin Time Sent. nn1 00:08 Prothrombin Time Profile\E\INR Sent. nn1 00:09 Inserted saline lock: 18 gauge in right antecubital area and blood collected. The nn1 patient tolerated the procedure well. 00:22 Patient visited by Whitney Gao, Security Analyst. jlm 00:22 No procedures done that require assistance. kas2 00:22 EKG done. (by ED staff). Reviewed by Natanael Arnett DO. jlm 00:23 Patient visited by Marj Hernandez RN. kas2 00:23 napper fixer on. Pulse ox on. NIBP on. kas2 00:54 Patient visited by Marj Hernandez RN. kas2 01:30 Patient visited by Carol Calabrese, Reg. hs2 01:30 [facility] Payment Agreement was scanned into [employer] and attached to record. hs2 01:35 CT Head Without Contrast Returned. EDMS 02:03 Patient visited by Marj Hernandez RN. kas2 02:36 Patient visited by Marj Hernandez RN. kas2 03:28 Patient visited by Marj Hernandez RN. kas2 03:34 Rajendra Phelps is Referral Physician. cs11 03:56 The patient / caregiver is instructed regarding the plan of care and ED course. kas2 03:56 Discontinued IV bleeding controlled, pressure dressing applied, No redness/swelling at [facility] site. 03:58 Patient visited by Marj Hernandez RN. kas2 07:59 ECG WITH READING ER PHYS Returned. EDMS 08:32 Chest, 2 View (pa\E\lat) Returned. EDMS 09:10 T-Sheet-- Draft Copy was scanned into [employer] and attached to record. [facility] 10/23 08:13 ECG/EKG was scanned into [employer] and attached to record. gb Administered Medications: 10/22 02:27 Drug: NS 0.9% 1000 ml [sodium chloride 0.9 % intravenous solution] Route: IV; Rate: kas2 bolus; Site: right antecubital; 03:26 Follow up: IV Status: Completed infusion; IV Intake: 1000ml kas2 02:27 Drug: Meclizine 50 mg [meclizine 12.5 mg tablet (4 tabs)] Route: PO; kas2 Point of Care Testing: Blood Glucose: 00:22 Blood Glucose: 91 mg/dL; kas2 Ranges: Intake: 03:26 IV: 1000.00ml; Total: 1000.00ml. kas2 Order Results: Lab Order: Basic Metabolic Profile; SPEC'M 10/22/16 00:06 Test: GLUCOSE, FASTING; Value: 99; Range: 83-110; Units: MG/DL; Status: F Test: BLOOD UREA NITROGEN; Value: 18; Range: 7-18; Units: MG/DL; Status: F Test: CREATININE FOR GFR; Value: 0.83; Range: 0.70-1.30; Units: MG/DL; Status: F Test: GLOMERULAR FILTRATION RATE; Value: > 60.0; Range: >42; Status: F Test: SODIUM LEVEL; Value: 142; Range: 136-145; Units: MEQ/L; Status: F Test: POTASSIUM SERUM; Value: 4.1; Range: 3.5-5.1; Units: MEQ/L; Status: F Test: CHLORIDE LEVEL; Value: 106; Range: 98-107; Units: MEQ/L; Status: F Test: CARBON DIOXIDE LEVEL; Value: 28; Range: 21-32; Units: MEQ/L; Status: F Test: ANION GAP; Value: 8; Range: 8-16; Units: MEQ/L; Status: F Test: CALCIUM LEVEL; Value: 8.7; Range: 8.8-10.2; Abnormal: Below low normal; Units: MG/DL; Status: F Test Note: ; Units are mL/min/1.73 m2 Chronic Kidney Disease Staging per NKF: Stage I & II GFR >=60 Normal to Mildly Decreased Stage III GFR 30-59 Moderately Decreased Stage IV GFR 15-29 Severely Decreased Stage V GFR <15 Very Little GFR Left ESRD GFR <15 on PROCESS MAINTENANCE TECHNICIAN Lab Order: CBC with Diff; SPEC'M 10/22/16 00:06 Test: WHITE BLOOD COUNT; Value: 9.3; Range: 4.0-10.0; Units: K/mm3; Status: F Test: RED BLOOD COUNT; Value: 4.83; Range: 4.30-6.10; Units: M/mm3; Status: F Test: HEMOGLOBIN; Value: 15.8; Range: 14.0-18.0; Units: g/dl; Status: F Test: HEMATOCRIT; Value: 45.9; Range: 42.0-52.0; Units: %; Status: F Test: MEAN CORPUSCULAR VOLUME; Value: 95.1; Range: 80.0-96.0; Units: fl; Status: F Test: MEAN CORPUSCULAR HEMOGLOBIN; Value: 32.7; Range: 27.0-33.0; Units: pg; Status: F Test: MEAN CORPUSCULAR HGB CONC; Value: 34.4; Range: 32.0-36.5; Units: g/dl; Status: F Test: RED CELL DISTRIBUTION WIDTH; Value: 12.2; Range: 11.5-14.5; Units: %; Status: F Test: PLATELET COUNT, AUTOMATED; Value: 145; Range: 150-450; Abnormal: Below low normal; Units: k/mm3; Status: F Test: NEUTROPHILS %; Value: 67.3; Range: 36.0-66.0; Abnormal: Above high normal; Units: %; Status: F Test: LYMPH %; Value: 22.6; Range: 24.0-44.0; Abnormal: Below low normal; Units: %; Status: F Test: MONO %; Value: 6.6; Range: 0.0-5.0; Abnormal: Above high normal; Units: %; Status: F Test: EOS %; Value: 1.5; Range: 0.0-3.0; Units: %; Status: F Test: BASO %; Value: 0.2; Range: 0.0-1.0; Units: %; Status: F Test: LARGE UNSTAINED CELL %; Value: 1.9; Range: 0.0-4.0; Units: %; Status: F Test: NEUTROPHILS #; Value: 6.3; Range: 1.8-7.7; Units: K/mm3; Status: F Test: LYMPH #; Value: 2.1; Range: 1.5-4.5; Units: K/mm3; Status: F Test: MONO #; Value: 0.6; Range: 0.0-0.8; Units: K/mm3; Status: F Test: EOS #; Value: 0.1; Range: 0.0-0.50; Units: K/mm3; Status: F Test: BASO #; Value: 0.0; Range: 0.0-0.2; Units: K/mm3; Status: F Test: LARGE UNSTAINED CELL #; Value: 0.2; Range: 0.0-0.4; Units: K/mm3; Status: F Lab Order: Partial Thromboplastin Time; SPEC'M 10/22/16 00:06 Test: PARTIAL THROMBOPLASTIN TIME; Value: 26.4; Range: 26.6-37.1; Abnormal: Below low normal; Units: SECONDS; Status: F Lab Order: Prothrombin Time Profile\E\INR; SPEC'M 10/22/16 00:06 Test: PROTHROMBIN TIME; Value: 12.8; Range: 12.3-14.5; Units: SECONDS; Status: F Test: INR; Value: 0.95; Status: F Test Note: ; THERAPUTIC HUMAN INR VALUES INDICATIONS NORMAL RANGES PROPHYLAXIS/TREATMENT OF: VENOUS THROMBOSIS 2.0-3.0 PULMONARY EMBOLISM 2.0-3.0 PREVENTION OF SYSTEMIC EMBOLISM FROM: TISSUE HEART VALVES 2.0-3.0 ACUTE MYOCARDIAL INFARCTION 2.0-3.0 VALVULAR HEART DISEASE 2.0-3.0 ATRIAL FIBRILLATION 2.0-3.0 MECHANICAL VALVES(HIGH RISK) 2.5-3.5 RECURRENT MYOCARDIAL INFARCTION 2.5-3.5 Lab Order: Fingerstick Blood Sugar; SPEC'M 10/22/16 00:12 Test: BEDSIDE GLUCOSE; Value: 91; Range: 83-110; Units: MG/DL; Status: F Radiology Order: CT Head Without Contrast Test: CT Head Without Contrast REASON FOR EXAMINATION: dizziness, blurred vision; ; CLINICAL HISTORY: Dizzy.; TECHNIQUE: Multiple axial CT images were obtained through the brain without IV contrast material.; COMMENTS:; There is normal configuration of sella turcica. There are no intra or extra-axial collections. There; is no mass effect or midline shift. There is no evidence of hematoma formation. No hydrocephalus is p; resent. The ventricles are symmetrical. No abnormal calcifications are present.; There is diffuse age-appropriate cerebellar and cerebral atrophy with proportionally dilated ventricl; es and cortical sulci.; There are bilateral periventricular and subcortical white matter hypolucencies compatible with mild c; hronic microvascular disease.; Otherwise, no significant focal abnormalities are seen either in the posterior fossa or supratentoria; l compartment.; IMPRESSION:; 1. Age-appropriate cerebellar and cerebral atrophy.; 2. Mild chronic microvascular disease.; 3. No evidence of acute intracranial pathology.; Thank you for your kind referral of this patient.; ; ; Radiology Order: Chest, 2 View (pa\E\lat) Test: Chest, 2 View (pa\E\lat) REASON FOR EXAMINATION: dizziness; Clinical: Vertigo and dizziness .; ; Comparison: 06/22/2010 .; ; Technique: PA and lateral.; ; Findings:; The mediastinum and cardiac silhouette are normal. The lung malcolm demonstrate; chronic changes without obvious acute consolidation, effusion, or pneumothorax.; On lateral radiograph, I cannot exclude a subtle nodular density in the; infrahilar region which may warrant chest CT follow-up. The skeletal structures; are intact and normal.; ; Impression:; 1. Cannot exclude subtle infrahilar density on lateral radiograph. Chest CT; should be considered for further evaluation.; 2. Otherwise stable chronic changes.; ; ; Signed by; Fernando Fitzgerald MD 10/22/2016 08:12 A; Radiology Order: ECG WITH READING ER PHYS Test: ECG WITH READING ER PHYS REASON FOR EXAMINATION: Syncope; Stationary ECG Study; [facility] - ED; ; Test Date: 2016-10-22; Pat Name: THOMAS RAMOS Department:; Room: -; Gender: M Counselling Psychologist: jillian; : 1945 Requested By: NATANAEL ARNETT; Order Number: [id number] Reading MD: Peggy Rogers; Measurements; Intervals [place]; Rate: 63 P: -41; ME: 110 QRS: 16; QRSD: 96 T: 65; QT: 388; QTc: 399; Interpretive Statements; SINUS RHYTHM WITH SHORT ME INTERVAL; SUBTLE ST CHANGES IN INFERIOR LEADS REQUIRE CLINICAL CORRELATION FOR ISCHEMIA; NO PRIOR FOR COMPARISON; Electronically Signed On 10-22-2016 7:37:53 EST by Peggy Rogers; Outcome: 03:34 Discharge ordered by Provider. cs11 03:55 Discharge Assessment: patient administered narcotics - no. The following High Risk [facility] Discharge criteria are identified: None. Discharged to home ambulatory. Condition: good Condition: stable Condition: improved. CT Study completed. Property :Personal belongings accompany Pt. 03:58 Patient left the ED. kas2 Signatures: Dispatcher [employer] EDMS Indira Guy, Reg Reg gb Johnson Carrion, UNIX ADMINISTRATOR UNIX ADMINISTRATOR dd6 Natanael Arnett DO DO cs11 Gilmer Velázquez,RN Whitney Holliday, Security Analyst Unit Bing OlivaRN RN nn1 Carol Calabrese, Reg Reg hs2 Marj Hernandez RN RN kas2 Peggy Lowe Chart Complete MTDD
--- NOTE | 2016-10-24 04:59 | EDDOCDS ---
Physician Documentation [facility] Name: Thomas Ramos Age: 71 yrs Sex: Male : 1945 Arrival Date: 10/21/2016 Time: 22:56 Bed 8 Private MD: Rajendra Phelps Disposition: 10/22/16 03:34 Discharged to Home/Self Care. Impression: Labyrinthitis, Nocturia. - Condition is Stable. - Prescriptions for Meclizine 25 mg Oral Tablet - take 1 tablet by ORAL route every 8 hours As needed; 30 tablet. - Medication Reconciliation, Local Pharmacy Hours form. - Follow up: Rajendra Phelps; When: 1 - 2 days; Reason: Recheck today's complaints. - Problem is an ongoing problem. - Symptoms have improved. Historical: - Allergies: Erythromycin; - Home Meds: 1. Sharyn oral oral Unknown once daily 2. atorvastatin oral oral Unknown once daily 3. Gabapentin Oral Unknown once daily 4. Vitamin D Unknown Oral Unknown daily 5. Vitamin B-12 Oral Unknown daily 6. aspirin 81 mg Oral tab 1 tab once daily 7. Metoprolol Tartrate Oral Unknown once daily - PMHx: Hypertension; hyperlipidemia; Colitis; - PSHx: Cardiac Ablation; Hernia repair; - Social history: Smoking status: Cigars No barriers to communication noted, The patient speaks fluent Japanese, Speaks appropriately for age. - Family history: Not pertinent. - : The pt / caregiver states he / she is not on anticoagulants. Home medication list is obtained from the patient. - Exposure Risk Screening:: None identified. Vital Signs: 10/21 22:58 BP 134 / 66; Pulse 78; Resp 18 S; Temp 97.1(O); Pulse Ox 99% on R/A; Weight 87.09 kg / dd6 192 lbs (R); Height 6 ft. 0 in. (182.88 cm); 23:17 BP 135 / 78 (auto/); kas2 23:19 Pulse 62 MON; Pulse Ox 96% ; kas2 23:19 Resp 20; Temp 98.0(O); Pain 0/10; kas2 23:32 BP 120 / 71 (auto/); kas2 23:32 Pulse 64 MON; Pulse Ox 92% ; kas2 23:47 BP 122 / 71 (auto/); kas2 23:47 Pulse 68 MON; Pulse Ox 94% ; kas2 10/22 00:02 BP 139 / 80 (auto/); kas2 00:02 Pulse 66 MON; Pulse Ox 96% ; kas2 00:12 BP 117 / 67 (auto/); kas2 00:12 Pulse 64 MON; Pulse Ox 94% ; kas2 00:13 BP 130 / 75 (auto/); kas2 00:13 Pulse 64 MON; Pulse Ox 95% ; kas2 00:14 BP 132 / 78 (auto/); kas2 00:14 Pulse 62 MON; Pulse Ox 95% ; kas2 00:17 BP 121 / 71 (auto/); kas2 00:17 Pulse 66 MON; Pulse Ox 96% ; kas2 00:22 BP 117 / 67 LA Supine; Pulse 62; kas2 00:22 BP 130 / 75 LA Sitting; Pulse 69; kas2 00:22 BP 132 / 78 LA Standing; Pulse 79; kas2 00:32 BP 133 / 77 (auto/); kas2 00:32 Pulse 70 MON; kas2 00:47 BP 107 / 67 (auto/); kas2 00:47 Pulse 64 MON; Pulse Ox 96% ; kas2 01:02 BP 109 / 65 (auto/); kas2 01:02 Pulse 64 MON; Pulse Ox 94% ; kas2 01:17 BP 121 / 80 (auto/); kas2 01:17 Pulse 66 MON; Pulse Ox 94% ; kas2 01:32 BP 114 / 67 (auto/); kas2 01:32 Pulse 68 MON; Pulse Ox 94% ; kas2 03:27 BP 128 / 65; Pulse 62; Resp 20; Temp 97.2(O); Pulse Ox 98% on R/A; Pain 0/10; kas2 03:56 BP 168 / 74; Pulse 62; Resp 20; Temp 98.3(O); Pulse Ox 99% on R/A; Pain 0/10; kas2 10/21 22:58 Body Mass Index 26.04 (87.09 kg, 182.88 cm) dd6 MDM: 10/21 23:11 ECG WITH READING ER PHYS+CARDIAG ordered. EDMS 23:32 Gear Straightener/Pulse Ox/q 15 min VS ordered. le 23:32 Accucheck ordered. le 23:32 IV Saline Lock ordered. le 23:32 Rhythm Strip to chart ordered. le 23:32 Orthostatic VS ordered. le 23:33 Basic Metabolic Profile Ordered. EDMS 23:33 CBC with Diff Ordered. EDMS 23:33 Partial Thromboplastin Time Ordered. EDMS 23:33 Prothrombin Time Profile\E\INR Ordered. EDMS 23:33 CT Head Without Contrast Ordered. EDMS 23:33 Chest, 2 View (pa\E\lat) Ordered. EDMS 10/22 01:21 Financial registration complete. hs2 01:30 [facility] Payment Agreement was scanned into [employer] and attached to record. hs2 01:59 Basic Metabolic Profile Reviewed. cs11 01:59 CBC with Diff Reviewed. cs11 01:59 Partial Thromboplastin Time Reviewed. cs11 01:59 Prothrombin Time Profile\E\INR Reviewed. cs11 01:59 Fingerstick Blood Sugar Reviewed. cs11 01:59 CT Head Without Contrast Reviewed. cs11 02:11 NS 0.9% 1000 ml IV at bolus once ordered. cs11 02:11 Meclizine 50 mg PO once ordered. cs11 06:56 ECG WITH READING ER PHYS ordered. EDMS 09:10 T-Sheet-- Draft Copy was scanned into [employer] and attached to record. [facility] 10/23 08:13 ECG/EKG was scanned into [employer] and attached to record. Point of Care Testing: Blood Glucose: 10/22 00:22 Blood Glucose: 91 mg/dL; kas2 Ranges: Administered Medications: 02:27 Drug: NS 0.9% 1000 ml [sodium chloride 0.9 % intravenous solution] Route: IV; Rate: kas2 bolus; Site: right antecubital; 03:26 Follow up: IV Status: Completed infusion; IV Intake: 1000ml kas2 02:27 Drug: Meclizine 50 mg [meclizine 12.5 mg tablet (4 tabs)] Route: PO; kas2 Signatures: Dispatcher [employer] EDMS Indira Guy, Reg Reg gb Evelyn Gil, FREDERICK OVALLEP Natanael Guillermo DO DO cs11 Gilmer VelázquezRN RN Carol Hicks, Reg Reg hs2 Marj Hernandez RN RN kas Peggy Lowe [facility] The chart was reviewed and I authenticate all verbal orders and agree with the evaluation and treatment provided.Attachments: 01:30 [facility] Payment Agreement hs2 09:10 T-Sheet-- Draft Copy [facility] 10/23 08:13 ECG/EKG gb Chart Complete MTDD
--- NOTE | 2016-10-24 20:30 | EDDOCDS ---
Nurse's Notes [facility] Name: Thomas Ramos Age: 71 yrs Sex: Male : 1945 Arrival Date: 10/21/2016 Time: 22:56 Bed 8 Private MD: Rajendra Phelps Diagnosis: Labyrinthitis;Nocturia Presentation: 10/21 23:01 Presenting complaint: Patient states: Patient reports having blurriness and dizziness. b Called both primary and immunopathologist whom stated that he should be seen. Adult Sepsis Screening: The patient does not have new or worsening altered mentation. Patient's respiratory rate is less than 22. Systolic blood pressure is greater than 100. Patient has a qSOFA score of 0- Negative Sepsis Screen. Suicide/Homicide risk assessment- the patient denies having any suicidal and/or homicidal ideations and does not present with any other emotional, behavioral or mental health complaints. Status: Patient is not a pump servicer supervisor or dependent. Transition of care: patient was not received from another setting of care. 23:01 Acuity: VALERIE Level 3 [facility] 23:01 Method Of Arrival: Walkin/Carried/Asstd [facility] Triage Assessment: 23:04 General: Appears in no apparent distress. Pain: Denies pain. Neurological: Level of [facility] Consciousness is awake, alert, obeys commands, Oriented to person, place, time, Speech is normal, Facial symmetry appears normal, Facial symmetry: tongue is midline. Respiratory: Airway is patent Respiratory effort is even, unlabored, Respiratory pattern is regular, symmetrical. Derm: Skin is pink, warm & dry. Musculoskeletal: Range of motion intact in all extremities. Historical: - Allergies: Erythromycin; - Home Meds: 1. Sharyn oral oral Unknown once daily 2. atorvastatin oral oral Unknown once daily 3. Gabapentin Oral Unknown once daily 4. Vitamin D Unknown Oral Unknown daily 5. Vitamin B-12 Oral Unknown daily 6. aspirin 81 mg Oral tab 1 tab once daily 7. Metoprolol Tartrate Oral Unknown once daily - PMHx: Hypertension; hyperlipidemia; Colitis; - PSHx: Cardiac Ablation; Hernia repair; - Social history: Smoking status: Cigars No barriers to communication noted, The patient speaks fluent Surinamese, Speaks appropriately for age. - Family history: Not pertinent. - : The pt / caregiver states he / she is not on anticoagulants. Home medication list is obtained from the patient. - Exposure Risk Screening:: None identified. Screenin/15 00:21 Screening information is obtained from the patient. Fall risk: No risks identified. kas2 Assistance ADL's: requires no assistance with activities of daily living. Abuse/DV Screen: The patient / caregiver reports he/she is: not in a situation that causes fear, pain or injury. Nutritional screening: No deficits noted. Advance Directives: Currently, there is no health care proxy. There is no active DNR order. There is no living will. There is no Power of Grain Weigher. home support is adequate. Assessment: 10/21 23:30 General: Appears in no apparent distress, comfortable, well nourished, well groomed, kas2 Behavior is appropriate for age, cooperative. Pain: Denies pain. Neurological: Level of Consciousness is awake, alert, Oriented to person, place, time. Cardiovascular: Capillary refill < 3 seconds Heart tones S1 S2 present Rhythm is sinus rhythm No ectopy. Respiratory: Airway is patent Respiratory effort is even, unlabored, Respiratory pattern is regular, symmetrical, Breath sounds are clear bilaterally. Derm: Skin is intact, is healthy with good turgor, Skin is dry, Skin is pink, warm & dry. Skin temperature is warm. 10/22 00:45 General: Patient sitting up in bed. Denies pain or discomfort at this time. Appears kas2 comfortable. No apparent distress noted. Call santana within reach. Will continue to monitor at this time.. 01:50 General: Appears in no apparent distress, comfortable, Behavior is appropriate for age, kas2 cooperative. Pain: Denies pain. Neurological: Level of Consciousness is awake, alert, Oriented to person, place, time. Cardiovascular: Rhythm is sinus rhythm No ectopy. Respiratory: Airway is patent Respiratory effort is even, unlabored, Respiratory pattern is regular, symmetrical. Derm: Skin Skin is dry, Skin is pink, warm & dry. Skin temperature is warm. 02:56 General: Patient sleeping at this time. No apparent distress. Appears comfortable. kas2 Airway patent. Respiratory effort even and unlabored. Call santana within reach. Will continue to monitor.. 03:10 General: Appears in no apparent distress, comfortable, Behavior is appropriate for age, kas2 cooperative. Pain: Denies pain. Neurological: Level of Consciousness is awake, alert, Oriented to person, place, time. Cardiovascular: Rhythm is sinus rhythm No ectopy. Respiratory: Airway is patent Respiratory effort is even, unlabored, Respiratory pattern is regular, symmetrical, Breath sounds are clear. Derm: Skin is intact, Skin is dry, Skin is pink, warm & dry. Skin temperature is warm. Vital Signs: 10/21 22:58 BP 134 / 66; Pulse 78; Resp 18 S; Temp 97.1(O); Pulse Ox 99% on R/A; Weight 87.09 kg dd6 (R); Height 6 ft. 0 in. (182.88 cm); 23:17 BP 135 / 78 (auto/); kas2 23:19 Pulse 62 MON; Pulse Ox 96% ; kas2 23:19 Resp 20; Temp 98.0(O); Pain 0/10; kas2 23:32 BP 120 / 71 (auto/); kas2 23:32 Pulse 64 MON; Pulse Ox 92% ; kas2 23:47 BP 122 / 71 (auto/); kas2 23:47 Pulse 68 MON; Pulse Ox 94% ; kas2 10/22 00:02 BP 139 / 80 (auto/); kas2 00:02 Pulse 66 MON; Pulse Ox 96% ; kas2 00:12 BP 117 / 67 (auto/); kas2 00:12 Pulse 64 MON; Pulse Ox 94% ; kas2 00:13 BP 130 / 75 (auto/); kas2 00:13 Pulse 64 MON; Pulse Ox 95% ; kas2 00:14 BP 132 / 78 (auto/); kas2 00:14 Pulse 62 MON; Pulse Ox 95% ; kas2 00:17 BP 121 / 71 (auto/); kas2 00:17 Pulse 66 MON; Pulse Ox 96% ; kas2 00:22 BP 117 / 67 LA Supine; Pulse 62; kas2 00:22 BP 130 / 75 LA Sitting; Pulse 69; kas2 00:22 BP 132 / 78 LA Standing; Pulse 79; kas2 00:32 BP 133 / 77 (auto/); kas2 00:32 Pulse 70 MON; kas2 00:47 BP 107 / 67 (auto/); kas2 00:47 Pulse 64 MON; Pulse Ox 96% ; kas2 01:02 BP 109 / 65 (auto/); kas2 01:02 Pulse 64 MON; Pulse Ox 94% ; kas2 01:17 BP 121 / 80 (auto/); kas2 01:17 Pulse 66 MON; Pulse Ox 94% ; kas2 01:32 BP 114 / 67 (auto/); kas2 01:32 Pulse 68 MON; Pulse Ox 94% ; kas2 03:27 BP 128 / 65; Pulse 62; Resp 20; Temp 97.2(O); Pulse Ox 98% on R/A; Pain 0/10; kas2 03:56 BP 168 / 74; Pulse 62; Resp 20; Temp 98.3(O); Pulse Ox 99% on R/A; Pain 0/10; kas2 10/21 22:58 Body Mass Index 26.04 (87.09 kg, 182.88 cm) dd6 Vitals: 10/21 22:58 Log In Time: October 21, 2016 at 22:56. RN notified that patient meets Red Flag dd6 criteria. ED Course: 22:58 Patient visited by Johnson Carrion PCA. dd6 22:58 Rajendra Phelps is Private Physician. dd6 22:58 Patient moved to Waiting dd6 23:02 Triage Initiated jmb 23:06 Marj Hernandez RN is Primary Nurse. jmb 23:06 Patient moved to 8 jmb 23:28 Patient visited by Marj Hernandez RN. kas2 23:36 Natanael Arnett DO is Attending Physician. cs11 23:36 Patient visited by Natanael Arnett DO. cs11 10/22 00:07 Patient visited by Marj Hernandez RN. kas2 00:08 Basic Metabolic Profile Sent. nn1 00:08 CBC with Diff Sent. nn1 00:08 Partial Thromboplastin Time Sent. nn1 00:08 Prothrombin Time Profile\E\INR Sent. nn1 00:09 Inserted saline lock: 18 gauge in right antecubital area and blood collected. The nn1 patient tolerated the procedure well. 00:22 Patient visited by Whitney Gao, Block Captain. jlm 00:22 No procedures done that require assistance. kas2 00:22 EKG done. (by ED staff). Reviewed by Natanael Arnett DO. jlm 00:23 Patient visited by Marj Hernandez RN. kas2 00:23 customer service security officer on. Pulse ox on. NIBP on. kas2 00:54 Patient visited by Marj Hernandez RN. kas2 01:30 Patient visited by Carol Calabrese, Reg. hs2 01:30 [facility] Payment Agreement was scanned into [employer] and attached to record. hs2 01:35 CT Head Without Contrast Returned. EDMS 02:03 Patient visited by Marj Hernandez RN. kas2 02:36 Patient visited by Marj Hernandez RN. kas2 03:28 Patient visited by Marj Hernandez RN. kas2 03:34 Rajendra Phelps is Referral Physician. cs11 03:56 The patient / caregiver is instructed regarding the plan of care and ED course. kas2 03:56 Discontinued IV bleeding controlled, pressure dressing applied, No redness/swelling at [facility] site. 03:58 Patient visited by Marj Hernandez RN. kas2 07:59 ECG WITH READING ER PHYS Returned. EDMS 08:32 Chest, 2 View (pa\E\lat) Returned. EDMS 09:10 T-Sheet-- Draft Copy was scanned into [employer] and attached to record. [facility] 10/23 08:13 ECG/EKG was scanned into [employer] and attached to record. gb Administered Medications: 10/22 02:27 Drug: NS 0.9% 1000 ml [sodium chloride 0.9 % intravenous solution] Route: IV; Rate: kas2 bolus; Site: right antecubital; 03:26 Follow up: IV Status: Completed infusion; IV Intake: 1000ml kas2 02:27 Drug: Meclizine 50 mg [meclizine 12.5 mg tablet (4 tabs)] Route: PO; kas2 Point of Care Testing: Blood Glucose: 00:22 Blood Glucose: 91 mg/dL; kas2 Ranges: Intake: 03:26 IV: 1000.00ml; Total: 1000.00ml. kas2 Order Results: Lab Order: Basic Metabolic Profile; SPEC'M 10/22/16 00:06 Test: GLUCOSE, FASTING; Value: 99; Range: 83-110; Units: MG/DL; Status: F Test: BLOOD UREA NITROGEN; Value: 18; Range: 7-18; Units: MG/DL; Status: F Test: CREATININE FOR GFR; Value: 0.83; Range: 0.70-1.30; Units: MG/DL; Status: F Test: GLOMERULAR FILTRATION RATE; Value: > 60.0; Range: >42; Status: F Test: SODIUM LEVEL; Value: 142; Range: 136-145; Units: MEQ/L; Status: F Test: POTASSIUM SERUM; Value: 4.1; Range: 3.5-5.1; Units: MEQ/L; Status: F Test: CHLORIDE LEVEL; Value: 106; Range: 98-107; Units: MEQ/L; Status: F Test: CARBON DIOXIDE LEVEL; Value: 28; Range: 21-32; Units: MEQ/L; Status: F Test: ANION GAP; Value: 8; Range: 8-16; Units: MEQ/L; Status: F Test: CALCIUM LEVEL; Value: 8.7; Range: 8.8-10.2; Abnormal: Below low normal; Units: MG/DL; Status: F Test Note: ; Units are mL/min/1.73 m2 Chronic Kidney Disease Staging per NKF: Stage I & II GFR >=60 Normal to Mildly Decreased Stage III GFR 30-59 Moderately Decreased Stage IV GFR 15-29 Severely Decreased Stage V GFR <15 Very Little GFR Left ESRD GFR <15 on SUPERVISOR FABRICATION DEPARTMENT Lab Order: CBC with Diff; SPEC'M 10/22/16 00:06 Test: WHITE BLOOD COUNT; Value: 9.3; Range: 4.0-10.0; Units: K/mm3; Status: F Test: RED BLOOD COUNT; Value: 4.83; Range: 4.30-6.10; Units: M/mm3; Status: F Test: HEMOGLOBIN; Value: 15.8; Range: 14.0-18.0; Units: g/dl; Status: F Test: HEMATOCRIT; Value: 45.9; Range: 42.0-52.0; Units: %; Status: F Test: MEAN CORPUSCULAR VOLUME; Value: 95.1; Range: 80.0-96.0; Units: fl; Status: F Test: MEAN CORPUSCULAR HEMOGLOBIN; Value: 32.7; Range: 27.0-33.0; Units: pg; Status: F Test: MEAN CORPUSCULAR HGB CONC; Value: 34.4; Range: 32.0-36.5; Units: g/dl; Status: F Test: RED CELL DISTRIBUTION WIDTH; Value: 12.2; Range: 11.5-14.5; Units: %; Status: F Test: PLATELET COUNT, AUTOMATED; Value: 145; Range: 150-450; Abnormal: Below low normal; Units: k/mm3; Status: F Test: NEUTROPHILS %; Value: 67.3; Range: 36.0-66.0; Abnormal: Above high normal; Units: %; Status: F Test: LYMPH %; Value: 22.6; Range: 24.0-44.0; Abnormal: Below low normal; Units: %; Status: F Test: MONO %; Value: 6.6; Range: 0.0-5.0; Abnormal: Above high normal; Units: %; Status: F Test: EOS %; Value: 1.5; Range: 0.0-3.0; Units: %; Status: F Test: BASO %; Value: 0.2; Range: 0.0-1.0; Units: %; Status: F Test: LARGE UNSTAINED CELL %; Value: 1.9; Range: 0.0-4.0; Units: %; Status: F Test: NEUTROPHILS #; Value: 6.3; Range: 1.8-7.7; Units: K/mm3; Status: F Test: LYMPH #; Value: 2.1; Range: 1.5-4.5; Units: K/mm3; Status: F Test: MONO #; Value: 0.6; Range: 0.0-0.8; Units: K/mm3; Status: F Test: EOS #; Value: 0.1; Range: 0.0-0.50; Units: K/mm3; Status: F Test: BASO #; Value: 0.0; Range: 0.0-0.2; Units: K/mm3; Status: F Test: LARGE UNSTAINED CELL #; Value: 0.2; Range: 0.0-0.4; Units: K/mm3; Status: F Lab Order: Partial Thromboplastin Time; SPEC'M 10/22/16 00:06 Test: PARTIAL THROMBOPLASTIN TIME; Value: 26.4; Range: 26.6-37.1; Abnormal: Below low normal; Units: SECONDS; Status: F Lab Order: Prothrombin Time Profile\E\INR; SPEC'M 10/22/16 00:06 Test: PROTHROMBIN TIME; Value: 12.8; Range: 12.3-14.5; Units: SECONDS; Status: F Test: INR; Value: 0.95; Status: F Test Note: ; THERAPUTIC HUMAN INR VALUES INDICATIONS NORMAL RANGES PROPHYLAXIS/TREATMENT OF: VENOUS THROMBOSIS 2.0-3.0 PULMONARY EMBOLISM 2.0-3.0 PREVENTION OF SYSTEMIC EMBOLISM FROM: TISSUE HEART VALVES 2.0-3.0 ACUTE MYOCARDIAL INFARCTION 2.0-3.0 VALVULAR HEART DISEASE 2.0-3.0 ATRIAL FIBRILLATION 2.0-3.0 MECHANICAL VALVES(HIGH RISK) 2.5-3.5 RECURRENT MYOCARDIAL INFARCTION 2.5-3.5 Lab Order: Fingerstick Blood Sugar; SPEC'M 10/22/16 00:12 Test: BEDSIDE GLUCOSE; Value: 91; Range: 83-110; Units: MG/DL; Status: F Radiology Order: CT Head Without Contrast Test: CT Head Without Contrast REASON FOR EXAMINATION: dizziness, blurred vision; ; CLINICAL HISTORY: Dizzy.; TECHNIQUE: Multiple axial CT images were obtained through the brain without IV contrast material.; COMMENTS:; There is normal configuration of sella turcica. There are no intra or extra-axial collections. There; is no mass effect or midline shift. There is no evidence of hematoma formation. No hydrocephalus is p; resent. The ventricles are symmetrical. No abnormal calcifications are present.; There is diffuse age-appropriate cerebellar and cerebral atrophy with proportionally dilated ventricl; es and cortical sulci.; There are bilateral periventricular and subcortical white matter hypolucencies compatible with mild c; hronic microvascular disease.; Otherwise, no significant focal abnormalities are seen either in the posterior fossa or supratentoria; l compartment.; IMPRESSION:; 1. Age-appropriate cerebellar and cerebral atrophy.; 2. Mild chronic microvascular disease.; 3. No evidence of acute intracranial pathology.; Thank you for your kind referral of this patient.; ; ; Radiology Order: Chest, 2 View (pa\E\lat) Test: Chest, 2 View (pa\E\lat) REASON FOR EXAMINATION: dizziness; Clinical: Vertigo and dizziness .; ; Comparison: 06/22/2010 .; ; Technique: PA and lateral.; ; Findings:; The mediastinum and cardiac silhouette are normal. The lung malcolm demonstrate; chronic changes without obvious acute consolidation, effusion, or pneumothorax.; On lateral radiograph, I cannot exclude a subtle nodular density in the; infrahilar region which may warrant chest CT follow-up. The skeletal structures; are intact and normal.; ; Impression:; 1. Cannot exclude subtle infrahilar density on lateral radiograph. Chest CT; should be considered for further evaluation.; 2. Otherwise stable chronic changes.; ; ; Signed by; Fernando Fitzgerald MD 10/22/2016 08:12 A; Radiology Order: ECG WITH READING ER PHYS Test: ECG WITH READING ER PHYS REASON FOR EXAMINATION: Syncope; Stationary ECG Study; [facility] - ED; ; Test Date: 2016-10-22; Pat Name: THOMAS RAMOS Department:; Room: -; Gender: M Slate Trimmer: jillian; : 1945 Requested By: NATANAEL ARNETT; Order Number: [id number] Reading MD: Peggy Rogers; Measurements; Intervals [place]; Rate: 63 P: -41; IL: 110 QRS: 16; QRSD: 96 T: 65; QT: 388; QTc: 399; Interpretive Statements; SINUS RHYTHM WITH SHORT IL INTERVAL; SUBTLE ST CHANGES IN INFERIOR LEADS REQUIRE CLINICAL CORRELATION FOR ISCHEMIA; NO PRIOR FOR COMPARISON; Electronically Signed On 10-22-2016 7:37:53 EST by Peggy Rogers; Outcome: 03:34 Discharge ordered by Provider. cs11 03:55 Discharge Assessment: patient administered narcotics - no. The following High Risk [facility] Discharge criteria are identified: None. Discharged to home ambulatory. Condition: good Condition: stable Condition: improved. CT Study completed. Property :Personal belongings accompany Pt. 03:58 Patient left the ED. kas2 Signatures: Dispatcher [employer] EDMS Indira Guy, Reg Reg gb Johnson Carrion, SNOUT PULLER SNOUT PULLER dd6 Natanael Arnett DO DO cs11 Gilmer Velázquez,RN Whitney Holliday, Block Captain Unit Bing OlivaRN RN nn1 Carol Calabrese, Reg Reg hs2 Marj Hernandez RN RN kas2 Peggy Lowe MTDD
--- NOTE | 2016-10-24 20:30 | EDDOCDS ---
Physician Documentation [facility] Name: Thomas Ramos Age: 71 yrs Sex: Male : 1945 Arrival Date: 10/21/2016 Time: 22:56 Bed 8 Private MD: Rajendra Niño Disposition: 10/22/16 03:34 Discharged to Home/Self Care. Impression: Labyrinthitis, Nocturia. - Condition is Stable. - Prescriptions for Meclizine 25 mg Oral Tablet - take 1 tablet by ORAL route every 8 hours As needed; 30 tablet. - Medication Reconciliation, Local Pharmacy Hours form. - Follow up: Rajendra Niño; When: 1 - 2 days; Reason: Recheck today's complaints. - Problem is an ongoing problem. - Symptoms have improved. Historical: - Allergies: Erythromycin; - Home Meds: 1. Sharyn oral oral Unknown once daily 2. atorvastatin oral oral Unknown once daily 3. Gabapentin Oral Unknown once daily 4. Vitamin D Unknown Oral Unknown daily 5. Vitamin B-12 Oral Unknown daily 6. aspirin 81 mg Oral tab 1 tab once daily 7. Metoprolol Tartrate Oral Unknown once daily - PMHx: Hypertension; hyperlipidemia; Colitis; - PSHx: Cardiac Ablation; Hernia repair; - Social history: Smoking status: Cigars No barriers to communication noted, The patient speaks fluent Bengali, Speaks appropriately for age. - Family history: Not pertinent. - : The pt / caregiver states he / she is not on anticoagulants. Home medication list is obtained from the patient. - Exposure Risk Screening:: None identified. Vital Signs: 10/21 22:58 BP 134 / 66; Pulse 78; Resp 18 S; Temp 97.1(O); Pulse Ox 99% on R/A; Weight 87.09 kg / dd6 192 lbs (R); Height 6 ft. 0 in. (182.88 cm); 23:17 BP 135 / 78 (auto/); kas2 23:19 Pulse 62 MON; Pulse Ox 96% ; kas2 23:19 Resp 20; Temp 98.0(O); Pain 0/10; kas2 23:32 BP 120 / 71 (auto/); kas2 23:32 Pulse 64 MON; Pulse Ox 92% ; kas2 23:47 BP 122 / 71 (auto/); kas2 23:47 Pulse 68 MON; Pulse Ox 94% ; kas2 10/22 00:02 BP 139 / 80 (auto/); kas2 00:02 Pulse 66 MON; Pulse Ox 96% ; kas2 00:12 BP 117 / 67 (auto/); kas2 00:12 Pulse 64 MON; Pulse Ox 94% ; kas2 00:13 BP 130 / 75 (auto/); kas2 00:13 Pulse 64 MON; Pulse Ox 95% ; kas2 00:14 BP 132 / 78 (auto/); kas2 00:14 Pulse 62 MON; Pulse Ox 95% ; kas2 00:17 BP 121 / 71 (auto/); kas2 00:17 Pulse 66 MON; Pulse Ox 96% ; kas2 00:22 BP 117 / 67 LA Supine; Pulse 62; kas2 00:22 BP 130 / 75 LA Sitting; Pulse 69; kas2 00:22 BP 132 / 78 LA Standing; Pulse 79; kas2 00:32 BP 133 / 77 (auto/); kas2 00:32 Pulse 70 MON; kas2 00:47 BP 107 / 67 (auto/); kas2 00:47 Pulse 64 MON; Pulse Ox 96% ; kas2 01:02 BP 109 / 65 (auto/); kas2 01:02 Pulse 64 MON; Pulse Ox 94% ; kas2 01:17 BP 121 / 80 (auto/); kas2 01:17 Pulse 66 MON; Pulse Ox 94% ; kas2 01:32 BP 114 / 67 (auto/); kas2 01:32 Pulse 68 MON; Pulse Ox 94% ; kas2 03:27 BP 128 / 65; Pulse 62; Resp 20; Temp 97.2(O); Pulse Ox 98% on R/A; Pain 0/10; kas2 03:56 BP 168 / 74; Pulse 62; Resp 20; Temp 98.3(O); Pulse Ox 99% on R/A; Pain 0/10; kas2 10/21 22:58 Body Mass Index 26.04 (87.09 kg, 182.88 cm) dd6 MDM: 10/21 23:11 ECG WITH READING ER PHYS+CARDIAG ordered. EDMS 23:32 Vulcanizer/Pulse Ox/q 15 min VS ordered. le 23:32 Accucheck ordered. le 23:32 IV Saline Lock ordered. le 23:32 Rhythm Strip to chart ordered. le 23:32 Orthostatic VS ordered. le 23:33 Basic Metabolic Profile Ordered. EDMS 23:33 CBC with Diff Ordered. EDMS 23:33 Partial Thromboplastin Time Ordered. EDMS 23:33 Prothrombin Time Profile\E\INR Ordered. EDMS 23:33 CT Head Without Contrast Ordered. EDMS 23:33 Chest, 2 View (pa\E\lat) Ordered. EDMS 10/22 01:21 Financial registration complete. hs2 01:30 [facility] Payment Agreement was scanned into [employer] and attached to record. hs2 01:59 Basic Metabolic Profile Reviewed. cs11 01:59 CBC with Diff Reviewed. cs11 01:59 Partial Thromboplastin Time Reviewed. cs11 01:59 Prothrombin Time Profile\E\INR Reviewed. cs11 01:59 Fingerstick Blood Sugar Reviewed. cs11 01:59 CT Head Without Contrast Reviewed. cs11 02:11 NS 0.9% 1000 ml IV at bolus once ordered. cs11 02:11 Meclizine 50 mg PO once ordered. cs11 06:56 ECG WITH READING ER PHYS ordered. EDMS 09:10 T-Sheet-- Draft Copy was scanned into [employer] and attached to record. [facility] 10/23 08:13 ECG/EKG was scanned into [employer] and attached to record. Point of Care Testing: Blood Glucose: 10/22 00:22 Blood Glucose: 91 mg/dL; kas2 Ranges: Administered Medications: 02:27 Drug: NS 0.9% 1000 ml [sodium chloride 0.9 % intravenous solution] Route: IV; Rate: kas2 bolus; Site: right antecubital; 03:26 Follow up: IV Status: Completed infusion; IV Intake: 1000ml kas2 02:27 Drug: Meclizine 50 mg [meclizine 12.5 mg tablet (4 tabs)] Route: PO; kas2 Addendum: 10/24/2016 20:27 Radiology Callback: Radiology results faxed to primary care physician/provider. dr ashlee niño faxed formal report of cxr for fu mlg. Signatures: Dispatcher [employer] EDRI Lalita Martínez MD MD ml Barnhardt, Gloria, Reg Reg gb Evelyn Gil, BUSINESS SUPPORT PROFESSIONAL BUSINESS SUPPORT PROFESSIONAL Natanael Guillermo, DO cs11 Gilmer VelázquezRN RN Carol Hicks, Reg Reg hs2 Marj Hernandez RN [facility] The chart was reviewed and I authenticate all verbal orders and agree with the evaluation and treatment provided.Attachments: 10/22 01:30 [facility] Payment Agreement hs2 09:10 T-Sheet-- Draft Copy [facility] 10/23 08:13 ECG/EKG gb MTDD
--- NOTE | 2016-10-24 20:30 | EDDOCDS ---
Physician Documentation [facility] Name: Thomas Ramos Age: 71 yrs Sex: Male : 1945 Arrival Date: 10/21/2016 Time: 22:56 Bed 8 Private MD: Rajendra Niño Disposition: 10/22/16 03:34 Discharged to Home/Self Care. Impression: Labyrinthitis, Nocturia. - Condition is Stable. - Prescriptions for Meclizine 25 mg Oral Tablet - take 1 tablet by ORAL route every 8 hours As needed; 30 tablet. - Medication Reconciliation, Local Pharmacy Hours form. - Follow up: Rajendra Niño; When: 1 - 2 days; Reason: Recheck today's complaints. - Problem is an ongoing problem. - Symptoms have improved. Historical: - Allergies: Erythromycin; - Home Meds: 1. Sharyn oral oral Unknown once daily 2. atorvastatin oral oral Unknown once daily 3. Gabapentin Oral Unknown once daily 4. Vitamin D Unknown Oral Unknown daily 5. Vitamin B-12 Oral Unknown daily 6. aspirin 81 mg Oral tab 1 tab once daily 7. Metoprolol Tartrate Oral Unknown once daily - PMHx: Hypertension; hyperlipidemia; Colitis; - PSHx: Cardiac Ablation; Hernia repair; - Social history: Smoking status: Cigars No barriers to communication noted, The patient speaks fluent Serbian, Speaks appropriately for age. - Family history: Not pertinent. - : The pt / caregiver states he / she is not on anticoagulants. Home medication list is obtained from the patient. - Exposure Risk Screening:: None identified. Vital Signs: 10/21 22:58 BP 134 / 66; Pulse 78; Resp 18 S; Temp 97.1(O); Pulse Ox 99% on R/A; Weight 87.09 kg / dd6 192 lbs (R); Height 6 ft. 0 in. (182.88 cm); 23:17 BP 135 / 78 (auto/); kas2 23:19 Pulse 62 MON; Pulse Ox 96% ; kas2 23:19 Resp 20; Temp 98.0(O); Pain 0/10; kas2 23:32 BP 120 / 71 (auto/); kas2 23:32 Pulse 64 MON; Pulse Ox 92% ; kas2 23:47 BP 122 / 71 (auto/); kas2 23:47 Pulse 68 MON; Pulse Ox 94% ; kas2 10/22 00:02 BP 139 / 80 (auto/); kas2 00:02 Pulse 66 MON; Pulse Ox 96% ; kas2 00:12 BP 117 / 67 (auto/); kas2 00:12 Pulse 64 MON; Pulse Ox 94% ; kas2 00:13 BP 130 / 75 (auto/); kas2 00:13 Pulse 64 MON; Pulse Ox 95% ; kas2 00:14 BP 132 / 78 (auto/); kas2 00:14 Pulse 62 MON; Pulse Ox 95% ; kas2 00:17 BP 121 / 71 (auto/); kas2 00:17 Pulse 66 MON; Pulse Ox 96% ; kas2 00:22 BP 117 / 67 LA Supine; Pulse 62; kas2 00:22 BP 130 / 75 LA Sitting; Pulse 69; kas2 00:22 BP 132 / 78 LA Standing; Pulse 79; kas2 00:32 BP 133 / 77 (auto/); kas2 00:32 Pulse 70 MON; kas2 00:47 BP 107 / 67 (auto/); kas2 00:47 Pulse 64 MON; Pulse Ox 96% ; kas2 01:02 BP 109 / 65 (auto/); kas2 01:02 Pulse 64 MON; Pulse Ox 94% ; kas2 01:17 BP 121 / 80 (auto/); kas2 01:17 Pulse 66 MON; Pulse Ox 94% ; kas2 01:32 BP 114 / 67 (auto/); kas2 01:32 Pulse 68 MON; Pulse Ox 94% ; kas2 03:27 BP 128 / 65; Pulse 62; Resp 20; Temp 97.2(O); Pulse Ox 98% on R/A; Pain 0/10; kas2 03:56 BP 168 / 74; Pulse 62; Resp 20; Temp 98.3(O); Pulse Ox 99% on R/A; Pain 0/10; kas2 10/21 22:58 Body Mass Index 26.04 (87.09 kg, 182.88 cm) dd6 MDM: 10/21 23:11 ECG WITH READING ER PHYS+CARDIAG ordered. EDMS 23:32 Liquor Inspector/Pulse Ox/q 15 min VS ordered. le 23:32 Accucheck ordered. le 23:32 IV Saline Lock ordered. le 23:32 Rhythm Strip to chart ordered. le 23:32 Orthostatic VS ordered. le 23:33 Basic Metabolic Profile Ordered. EDMS 23:33 CBC with Diff Ordered. EDMS 23:33 Partial Thromboplastin Time Ordered. EDMS 23:33 Prothrombin Time Profile\E\INR Ordered. EDMS 23:33 CT Head Without Contrast Ordered. EDMS 23:33 Chest, 2 View (pa\E\lat) Ordered. EDMS 10/22 01:21 Financial registration complete. hs2 01:30 [facility] [place] was scanned into [employer] and attached to record. hs2 01:59 Basic Metabolic Profile Reviewed. cs11 01:59 CBC with Diff Reviewed. cs11 01:59 Partial Thromboplastin Time Reviewed. cs11 01:59 Prothrombin Time Profile\E\INR Reviewed. cs11 01:59 Fingerstick Blood Sugar Reviewed. cs11 01:59 CT Head Without Contrast Reviewed. cs11 02:11 NS 0.9% 1000 ml IV at bolus once ordered. cs11 02:11 Meclizine 50 mg PO once ordered. cs11 06:56 ECG WITH READING ER PHYS ordered. EDMS 09:10 T-Sheet-- Draft Copy was scanned into [employer] and attached to record. [facility] 10/23 08:13 ECG/EKG was scanned into [employer] and attached to record. Point of Care Testing: Blood Glucose: 10/22 00:22 Blood Glucose: 91 mg/dL; kas2 Ranges: Administered Medications: 02:27 Drug: NS 0.9% 1000 ml [sodium chloride 0.9 % intravenous solution] Route: IV; Rate: kas2 bolus; Site: right antecubital; 03:26 Follow up: IV Status: Completed infusion; IV Intake: 1000ml kas2 02:27 Drug: Meclizine 50 mg [meclizine 12.5 mg tablet (4 tabs)] Route: PO; kas2 Addendum: 10/24/2016 20:27 Radiology Callback: Radiology results faxed to primary care physician/provider. dr ashlee niño faxed formal report of cxr for fu mlg. Signatures: Dispatcher [employer] EDRI Lalita Martínez MD MD ml Barnhardt, Gloria, Reg Reg gb Evelyn Gil, WARRANTY CLERK WARRANTY CLERK Natanael Guillermo, DO cs11 Gilmer VelázquezRN RN Carol Hicks, Reg Reg hs2 Marj Hernandez RN RN [facility] The chart was reviewed and I authenticate all verbal orders and agree with the evaluation and treatment provided.Attachments: 10/22 01:30 [facility] [place] Agreement hs2 09:10 T-Sheet-- Draft Copy [facility] 10/23 08:13 ECG/EKG gb MTDD
--- NOTE | 2016-10-24 20:31 | EDDOCDS ---
Physician Documentation [facility] Name: Thomas Ramos Age: 71 yrs Sex: Male : 1945 Arrival Date: 10/21/2016 Time: 22:56 Bed 8 Private MD: Rajendra Niño Disposition: 10/22/16 03:34 Discharged to Home/Self Care. Impression: Labyrinthitis, Nocturia. - Condition is Stable. - Prescriptions for Meclizine 25 mg Oral Tablet - take 1 tablet by ORAL route every 8 hours As needed; 30 tablet. - Medication Reconciliation, Local Pharmacy Hours form. - Follow up: Rajendra Niño; When: 1 - 2 days; Reason: Recheck today's complaints. - Problem is an ongoing problem. - Symptoms have improved. Historical: - Allergies: Erythromycin; - Home Meds: 1. Sharyn oral oral Unknown once daily 2. atorvastatin oral oral Unknown once daily 3. Gabapentin Oral Unknown once daily 4. Vitamin D Unknown Oral Unknown daily 5. Vitamin B-12 Oral Unknown daily 6. aspirin 81 mg Oral tab 1 tab once daily 7. Metoprolol Tartrate Oral Unknown once daily - PMHx: Hypertension; hyperlipidemia; Colitis; - PSHx: Cardiac Ablation; Hernia repair; - Social history: Smoking status: Cigars No barriers to communication noted, The patient speaks fluent Occitan, Speaks appropriately for age. - Family history: Not pertinent. - : The pt / caregiver states he / she is not on anticoagulants. Home medication list is obtained from the patient. - Exposure Risk Screening:: None identified. Vital Signs: 10/21 22:58 BP 134 / 66; Pulse 78; Resp 18 S; Temp 97.1(O); Pulse Ox 99% on R/A; Weight 87.09 kg / dd6 192 lbs (R); Height 6 ft. 0 in. (182.88 cm); 23:17 BP 135 / 78 (auto/); kas2 23:19 Pulse 62 MON; Pulse Ox 96% ; kas2 23:19 Resp 20; Temp 98.0(O); Pain 0/10; kas2 23:32 BP 120 / 71 (auto/); kas2 23:32 Pulse 64 MON; Pulse Ox 92% ; kas2 23:47 BP 122 / 71 (auto/); kas2 23:47 Pulse 68 MON; Pulse Ox 94% ; kas2 10/22 00:02 BP 139 / 80 (auto/); kas2 00:02 Pulse 66 MON; Pulse Ox 96% ; kas2 00:12 BP 117 / 67 (auto/); kas2 00:12 Pulse 64 MON; Pulse Ox 94% ; kas2 00:13 BP 130 / 75 (auto/); kas2 00:13 Pulse 64 MON; Pulse Ox 95% ; kas2 00:14 BP 132 / 78 (auto/); kas2 00:14 Pulse 62 MON; Pulse Ox 95% ; kas2 00:17 BP 121 / 71 (auto/); kas2 00:17 Pulse 66 MON; Pulse Ox 96% ; kas2 00:22 BP 117 / 67 LA Supine; Pulse 62; kas2 00:22 BP 130 / 75 LA Sitting; Pulse 69; kas2 00:22 BP 132 / 78 LA Standing; Pulse 79; kas2 00:32 BP 133 / 77 (auto/); kas2 00:32 Pulse 70 MON; kas2 00:47 BP 107 / 67 (auto/); kas2 00:47 Pulse 64 MON; Pulse Ox 96% ; kas2 01:02 BP 109 / 65 (auto/); kas2 01:02 Pulse 64 MON; Pulse Ox 94% ; kas2 01:17 BP 121 / 80 (auto/); kas2 01:17 Pulse 66 MON; Pulse Ox 94% ; kas2 01:32 BP 114 / 67 (auto/); kas2 01:32 Pulse 68 MON; Pulse Ox 94% ; kas2 03:27 BP 128 / 65; Pulse 62; Resp 20; Temp 97.2(O); Pulse Ox 98% on R/A; Pain 0/10; kas2 03:56 BP 168 / 74; Pulse 62; Resp 20; Temp 98.3(O); Pulse Ox 99% on R/A; Pain 0/10; kas2 10/21 22:58 Body Mass Index 26.04 (87.09 kg, 182.88 cm) dd6 MDM: 10/21 23:11 ECG WITH READING ER PHYS+CARDIAG ordered. EDMS 23:32 Library Page/Pulse Ox/q 15 min VS ordered. le 23:32 Accucheck ordered. le 23:32 IV Saline Lock ordered. le 23:32 Rhythm Strip to chart ordered. le 23:32 Orthostatic VS ordered. le 23:33 Basic Metabolic Profile Ordered. EDMS 23:33 CBC with Diff Ordered. EDMS 23:33 Partial Thromboplastin Time Ordered. EDMS 23:33 Prothrombin Time Profile\E\INR Ordered. EDMS 23:33 CT Head Without Contrast Ordered. EDMS 23:33 Chest, 2 View (pa\E\lat) Ordered. EDMS 10/22 01:21 Financial registration complete. hs2 01:30 [facility] Payment Agreement was scanned into [employer] and attached to record. hs2 01:59 Basic Metabolic Profile Reviewed. cs11 01:59 CBC with Diff Reviewed. cs11 01:59 Partial Thromboplastin Time Reviewed. cs11 01:59 Prothrombin Time Profile\E\INR Reviewed. cs11 01:59 Fingerstick Blood Sugar Reviewed. cs11 01:59 CT Head Without Contrast Reviewed. cs11 02:11 NS 0.9% 1000 ml IV at bolus once ordered. cs11 02:11 Meclizine 50 mg PO once ordered. cs11 06:56 ECG WITH READING ER PHYS ordered. EDMS 09:10 T-Sheet-- Draft Copy was scanned into [employer] and attached to record. [facility] 10/23 08:13 ECG/EKG was scanned into [employer] and attached to record. Point of Care Testing: Blood Glucose: 10/22 00:22 Blood Glucose: 91 mg/dL; kas2 Ranges: Administered Medications: 02:27 Drug: NS 0.9% 1000 ml [sodium chloride 0.9 % intravenous solution] Route: IV; Rate: kas2 bolus; Site: right antecubital; 03:26 Follow up: IV Status: Completed infusion; IV Intake: 1000ml kas2 02:27 Drug: Meclizine 50 mg [meclizine 12.5 mg tablet (4 tabs)] Route: PO; kas2 Addendum: 10/24/2016 20:27 Radiology Callback: Radiology results faxed to primary care physician/provider. dr ashlee niño faxed formal report of cxr for fu mlg. Signatures: Dispatcher [employer] EDLA Lalita Martínez MD MD ml Barnhardt, Gloria, Reg Reg gb Evelyn Gil, BUSINESS ASSOCIATE BUSINESS ASSOCIATE Natanael Guillermo, DO cs11 Gilmer VelázquezRN RN Carol Hicks, Reg Reg hs2 Marj Hernandez RN RN [facility] The chart was reviewed and I authenticate all verbal orders and agree with the evaluation and treatment provided.Attachments: 10/22 01:30 [facility] Payment Agreement hs2 09:10 T-Sheet-- Draft Copy [facility] 10/23 08:13 ECG/EKG gb Chart Complete MTDD
--- NOTE | 2016-10-24 20:31 | EDDOCDS ---
Physician Documentation [facility] Name: Thomas Ramos Age: 71 yrs Sex: Male : 1945 Arrival Date: 10/21/2016 Time: 22:56 Bed 8 Private MD: Rajendra Niño Disposition: 10/22/16 03:34 Discharged to Home/Self Care. Impression: Labyrinthitis, Nocturia. - Condition is Stable. - Prescriptions for Meclizine 25 mg Oral Tablet - take 1 tablet by ORAL route every 8 hours As needed; 30 tablet. - Medication Reconciliation, Local Pharmacy Hours form. - Follow up: Rajendra Niño; When: 1 - 2 days; Reason: Recheck today's complaints. - Problem is an ongoing problem. - Symptoms have improved. Historical: - Allergies: Erythromycin; - Home Meds: 1. Sharyn oral oral Unknown once daily 2. atorvastatin oral oral Unknown once daily 3. Gabapentin Oral Unknown once daily 4. Vitamin D Unknown Oral Unknown daily 5. Vitamin B-12 Oral Unknown daily 6. aspirin 81 mg Oral tab 1 tab once daily 7. Metoprolol Tartrate Oral Unknown once daily - PMHx: Hypertension; hyperlipidemia; Colitis; - PSHx: Cardiac Ablation; Hernia repair; - Social history: Smoking status: Cigars No barriers to communication noted, The patient speaks fluent Chinese, Speaks appropriately for age. - Family history: Not pertinent. - : The pt / caregiver states he / she is not on anticoagulants. Home medication list is obtained from the patient. - Exposure Risk Screening:: None identified. Vital Signs: 10/21 22:58 BP 134 / 66; Pulse 78; Resp 18 S; Temp 97.1(O); Pulse Ox 99% on R/A; Weight 87.09 kg / dd6 192 lbs (R); Height 6 ft. 0 in. (182.88 cm); 23:17 BP 135 / 78 (auto/); kas2 23:19 Pulse 62 MON; Pulse Ox 96% ; kas2 23:19 Resp 20; Temp 98.0(O); Pain 0/10; kas2 23:32 BP 120 / 71 (auto/); kas2 23:32 Pulse 64 MON; Pulse Ox 92% ; kas2 23:47 BP 122 / 71 (auto/); kas2 23:47 Pulse 68 MON; Pulse Ox 94% ; kas2 10/22 00:02 BP 139 / 80 (auto/); kas2 00:02 Pulse 66 MON; Pulse Ox 96% ; kas2 00:12 BP 117 / 67 (auto/); kas2 00:12 Pulse 64 MON; Pulse Ox 94% ; kas2 00:13 BP 130 / 75 (auto/); kas2 00:13 Pulse 64 MON; Pulse Ox 95% ; kas2 00:14 BP 132 / 78 (auto/); kas2 00:14 Pulse 62 MON; Pulse Ox 95% ; kas2 00:17 BP 121 / 71 (auto/); kas2 00:17 Pulse 66 MON; Pulse Ox 96% ; kas2 00:22 BP 117 / 67 LA Supine; Pulse 62; kas2 00:22 BP 130 / 75 LA Sitting; Pulse 69; kas2 00:22 BP 132 / 78 LA Standing; Pulse 79; kas2 00:32 BP 133 / 77 (auto/); kas2 00:32 Pulse 70 MON; kas2 00:47 BP 107 / 67 (auto/); kas2 00:47 Pulse 64 MON; Pulse Ox 96% ; kas2 01:02 BP 109 / 65 (auto/); kas2 01:02 Pulse 64 MON; Pulse Ox 94% ; kas2 01:17 BP 121 / 80 (auto/); kas2 01:17 Pulse 66 MON; Pulse Ox 94% ; kas2 01:32 BP 114 / 67 (auto/); kas2 01:32 Pulse 68 MON; Pulse Ox 94% ; kas2 03:27 BP 128 / 65; Pulse 62; Resp 20; Temp 97.2(O); Pulse Ox 98% on R/A; Pain 0/10; kas2 03:56 BP 168 / 74; Pulse 62; Resp 20; Temp 98.3(O); Pulse Ox 99% on R/A; Pain 0/10; kas2 10/21 22:58 Body Mass Index 26.04 (87.09 kg, 182.88 cm) dd6 MDM: 10/21 23:11 ECG WITH READING ER PHYS+CARDIAG ordered. EDMS 23:32 Silverware Cleaner/Pulse Ox/q 15 min VS ordered. le 23:32 Accucheck ordered. le 23:32 IV Saline Lock ordered. le 23:32 Rhythm Strip to chart ordered. le 23:32 Orthostatic VS ordered. le 23:33 Basic Metabolic Profile Ordered. EDMS 23:33 CBC with Diff Ordered. EDMS 23:33 Partial Thromboplastin Time Ordered. EDMS 23:33 Prothrombin Time Profile\E\INR Ordered. EDMS 23:33 CT Head Without Contrast Ordered. EDMS 23:33 Chest, 2 View (pa\E\lat) Ordered. EDMS 10/22 01:21 Financial registration complete. hs2 01:30 [facility] Payment Agreement was scanned into [employer] and attached to record. hs2 01:59 Basic Metabolic Profile Reviewed. cs11 01:59 CBC with Diff Reviewed. cs11 01:59 Partial Thromboplastin Time Reviewed. cs11 01:59 Prothrombin Time Profile\E\INR Reviewed. cs11 01:59 Fingerstick Blood Sugar Reviewed. cs11 01:59 CT Head Without Contrast Reviewed. cs11 02:11 NS 0.9% 1000 ml IV at bolus once ordered. cs11 02:11 Meclizine 50 mg PO once ordered. cs11 06:56 ECG WITH READING ER PHYS ordered. EDMS 09:10 T-Sheet-- Draft Copy was scanned into [employer] and attached to record. [facility] 10/23 08:13 ECG/EKG was scanned into [employer] and attached to record. Point of Care Testing: Blood Glucose: 10/22 00:22 Blood Glucose: 91 mg/dL; kas2 Ranges: Administered Medications: 02:27 Drug: NS 0.9% 1000 ml [sodium chloride 0.9 % intravenous solution] Route: IV; Rate: kas2 bolus; Site: right antecubital; 03:26 Follow up: IV Status: Completed infusion; IV Intake: 1000ml kas2 02:27 Drug: Meclizine 50 mg [meclizine 12.5 mg tablet (4 tabs)] Route: PO; kas2 Addendum: 10/24/2016 20:27 Radiology Callback: Radiology results faxed to primary care physician/provider. dr ashlee niño faxed formal report of cxr for fu mlg. Signatures: Dispatcher [employer] EDCT Laltia Martínez MD MD ml Barnhardt, Gloria, Reg Reg gb Evelyn Gil, E D TECH E D TECH Natanael Guillermo, DO cs11 Gilmer VelázquezRN RN Carol Hicks, Reg Reg hs2 Marj Hernandez RN RN [facility] The chart was reviewed and I authenticate all verbal orders and agree with the evaluation and treatment provided.Attachments: 10/22 01:30 [facility] Payment Agreement hs2 09:10 T-Sheet-- Draft Copy [facility] 10/23 08:13 ECG/EKG gb Chart Complete MTDD
--- NOTE | 2016-10-24 20:31 | EDDOCDS ---
Nurse's Notes [facility] Name: Thomas Ramos Age: 71 yrs Sex: Male : 1945 Arrival Date: 10/21/2016 Time: 22:56 Bed 8 Private MD: Rajendra Phelps Diagnosis: Labyrinthitis;Nocturia Presentation: 10/21 23:01 Presenting complaint: Patient states: Patient reports having blurriness and dizziness. b Called both primary and fire extinguisher inspector whom stated that he should be seen. Adult Sepsis Screening: The patient does not have new or worsening altered mentation. Patient's respiratory rate is less than 22. Systolic blood pressure is greater than 100. Patient has a qSOFA score of 0- Negative Sepsis Screen. Suicide/Homicide risk assessment- the patient denies having any suicidal and/or homicidal ideations and does not present with any other emotional, behavioral or mental health complaints. Status: Patient is not a job service specialist or dependent. Transition of care: patient was not received from another setting of care. 23:01 Acuity: VALERIE Level 3 [facility] 23:01 Method Of Arrival: Walkin/Carried/Asstd [facility] Triage Assessment: 23:04 General: Appears in no apparent distress. Pain: Denies pain. Neurological: Level of [facility] Consciousness is awake, alert, obeys commands, Oriented to person, place, time, Speech is normal, Facial symmetry appears normal, Facial symmetry: tongue is midline. Respiratory: Airway is patent Respiratory effort is even, unlabored, Respiratory pattern is regular, symmetrical. Derm: Skin is pink, warm & dry. Musculoskeletal: Range of motion intact in all extremities. Historical: - Allergies: Erythromycin; - Home Meds: 1. Sharyn oral oral Unknown once daily 2. atorvastatin oral oral Unknown once daily 3. Gabapentin Oral Unknown once daily 4. Vitamin D Unknown Oral Unknown daily 5. Vitamin B-12 Oral Unknown daily 6. aspirin 81 mg Oral tab 1 tab once daily 7. Metoprolol Tartrate Oral Unknown once daily - PMHx: Hypertension; hyperlipidemia; Colitis; - PSHx: Cardiac Ablation; Hernia repair; - Social history: Smoking status: Cigars No barriers to communication noted, The patient speaks fluent Chadian, Speaks appropriately for age. - Family history: Not pertinent. - : The pt / caregiver states he / she is not on anticoagulants. Home medication list is obtained from the patient. - Exposure Risk Screening:: None identified. Screenin/15 00:21 Screening information is obtained from the patient. Fall risk: No risks identified. kas2 Assistance ADL's: requires no assistance with activities of daily living. Abuse/DV Screen: The patient / caregiver reports he/she is: not in a situation that causes fear, pain or injury. Nutritional screening: No deficits noted. Advance Directives: Currently, there is no health care proxy. There is no active DNR order. There is no living will. There is no Power of Manual Winder. home support is adequate. Assessment: 10/21 23:30 General: Appears in no apparent distress, comfortable, well nourished, well groomed, kas2 Behavior is appropriate for age, cooperative. Pain: Denies pain. Neurological: Level of Consciousness is awake, alert, Oriented to person, place, time. Cardiovascular: Capillary refill < 3 seconds Heart tones S1 S2 present Rhythm is sinus rhythm No ectopy. Respiratory: Airway is patent Respiratory effort is even, unlabored, Respiratory pattern is regular, symmetrical, Breath sounds are clear bilaterally. Derm: Skin is intact, is healthy with good turgor, Skin is dry, Skin is pink, warm & dry. Skin temperature is warm. 10/22 00:45 General: Patient sitting up in bed. Denies pain or discomfort at this time. Appears kas2 comfortable. No apparent distress noted. Call santana within reach. Will continue to monitor at this time.. 01:50 General: Appears in no apparent distress, comfortable, Behavior is appropriate for age, kas2 cooperative. Pain: Denies pain. Neurological: Level of Consciousness is awake, alert, Oriented to person, place, time. Cardiovascular: Rhythm is sinus rhythm No ectopy. Respiratory: Airway is patent Respiratory effort is even, unlabored, Respiratory pattern is regular, symmetrical. Derm: Skin Skin is dry, Skin is pink, warm & dry. Skin temperature is warm. 02:56 General: Patient sleeping at this time. No apparent distress. Appears comfortable. kas2 Airway patent. Respiratory effort even and unlabored. Call santana within reach. Will continue to monitor.. 03:10 General: Appears in no apparent distress, comfortable, Behavior is appropriate for age, kas2 cooperative. Pain: Denies pain. Neurological: Level of Consciousness is awake, alert, Oriented to person, place, time. Cardiovascular: Rhythm is sinus rhythm No ectopy. Respiratory: Airway is patent Respiratory effort is even, unlabored, Respiratory pattern is regular, symmetrical, Breath sounds are clear. Derm: Skin is intact, Skin is dry, Skin is pink, warm & dry. Skin temperature is warm. Vital Signs: 10/21 22:58 BP 134 / 66; Pulse 78; Resp 18 S; Temp 97.1(O); Pulse Ox 99% on R/A; Weight 87.09 kg dd6 (R); Height 6 ft. 0 in. (182.88 cm); 23:17 BP 135 / 78 (auto/); kas2 23:19 Pulse 62 MON; Pulse Ox 96% ; kas2 23:19 Resp 20; Temp 98.0(O); Pain 0/10; kas2 23:32 BP 120 / 71 (auto/); kas2 23:32 Pulse 64 MON; Pulse Ox 92% ; kas2 23:47 BP 122 / 71 (auto/); kas2 23:47 Pulse 68 MON; Pulse Ox 94% ; kas2 10/22 00:02 BP 139 / 80 (auto/); kas2 00:02 Pulse 66 MON; Pulse Ox 96% ; kas2 00:12 BP 117 / 67 (auto/); kas2 00:12 Pulse 64 MON; Pulse Ox 94% ; kas2 00:13 BP 130 / 75 (auto/); kas2 00:13 Pulse 64 MON; Pulse Ox 95% ; kas2 00:14 BP 132 / 78 (auto/); kas2 00:14 Pulse 62 MON; Pulse Ox 95% ; kas2 00:17 BP 121 / 71 (auto/); kas2 00:17 Pulse 66 MON; Pulse Ox 96% ; kas2 00:22 BP 117 / 67 LA Supine; Pulse 62; kas2 00:22 BP 130 / 75 LA Sitting; Pulse 69; kas2 00:22 BP 132 / 78 LA Standing; Pulse 79; kas2 00:32 BP 133 / 77 (auto/); kas2 00:32 Pulse 70 MON; kas2 00:47 BP 107 / 67 (auto/); kas2 00:47 Pulse 64 MON; Pulse Ox 96% ; kas2 01:02 BP 109 / 65 (auto/); kas2 01:02 Pulse 64 MON; Pulse Ox 94% ; kas2 01:17 BP 121 / 80 (auto/); kas2 01:17 Pulse 66 MON; Pulse Ox 94% ; kas2 01:32 BP 114 / 67 (auto/); kas2 01:32 Pulse 68 MON; Pulse Ox 94% ; kas2 03:27 BP 128 / 65; Pulse 62; Resp 20; Temp 97.2(O); Pulse Ox 98% on R/A; Pain 0/10; kas2 03:56 BP 168 / 74; Pulse 62; Resp 20; Temp 98.3(O); Pulse Ox 99% on R/A; Pain 0/10; kas2 10/21 22:58 Body Mass Index 26.04 (87.09 kg, 182.88 cm) dd6 Vitals: 10/21 22:58 Log In Time: October 21, 2016 at 22:56. RN notified that patient meets Red Flag dd6 criteria. ED Course: 22:58 Patient visited by Johnson Carrion PCA. dd6 22:58 Rajendra Phelps is Private Physician. dd6 22:58 Patient moved to Waiting dd6 23:02 Triage Initiated jmb 23:06 Marj Hernandez RN is Primary Nurse. jmb 23:06 Patient moved to 8 jmb 23:28 Patient visited by Marj Hernandez RN. kas2 23:36 Natanael Arnett DO is Attending Physician. cs11 23:36 Patient visited by Natanael Arnett DO. cs11 10/22 00:07 Patient visited by Marj Hernandez RN. kas2 00:08 Basic Metabolic Profile Sent. nn1 00:08 CBC with Diff Sent. nn1 00:08 Partial Thromboplastin Time Sent. nn1 00:08 Prothrombin Time Profile\E\INR Sent. nn1 00:09 Inserted saline lock: 18 gauge in right antecubital area and blood collected. The nn1 patient tolerated the procedure well. 00:22 Patient visited by Whitney Gao, Jackscrew Man. jlm 00:22 No procedures done that require assistance. kas2 00:22 EKG done. (by ED staff). Reviewed by Natanael Arnett DO. jlm 00:23 Patient visited by Marj Hernandez RN. kas2 00:23 school lunch monitor on. Pulse ox on. NIBP on. kas2 00:54 Patient visited by Marj Hernandez RN. kas2 01:30 Patient visited by Carol Calabrese, Reg. hs2 01:30 [facility] Payment Agreement was scanned into [employer] and attached to record. hs2 01:35 CT Head Without Contrast Returned. EDMS 02:03 Patient visited by aMrj Hernandez RN. kas2 02:36 Patient visited by Marj Hernandez RN. kas2 03:28 Patient visited by Marj Hernandez RN. kas2 03:34 Rajendra Phelps is Referral Physician. cs11 03:56 The patient / caregiver is instructed regarding the plan of care and ED course. kas2 03:56 Discontinued IV bleeding controlled, pressure dressing applied, No redness/swelling at orthopaedic hospital site. 03:58 Patient visited by Marj Hernandez RN. kas2 07:59 ECG WITH READING ER PHYS Returned. EDMS 08:32 Chest, 2 View (pa\E\lat) Returned. EDMS 09:10 T-Sheet-- Draft Copy was scanned into [employer] and attached to record. [facility] 10/23 08:13 ECG/EKG was scanned into [employer] and attached to record. gb Administered Medications: 10/22 02:27 Drug: NS 0.9% 1000 ml [sodium chloride 0.9 % intravenous solution] Route: IV; Rate: kas2 bolus; Site: right antecubital; 03:26 Follow up: IV Status: Completed infusion; IV Intake: 1000ml kas2 02:27 Drug: Meclizine 50 mg [meclizine 12.5 mg tablet (4 tabs)] Route: PO; kas2 Point of Care Testing: Blood Glucose: 00:22 Blood Glucose: 91 mg/dL; kas2 Ranges: Intake: 03:26 IV: 1000.00ml; Total: 1000.00ml. kas2 Order Results: Lab Order: Basic Metabolic Profile; SPEC'M 10/22/16 00:06 Test: GLUCOSE, FASTING; Value: 99; Range: 83-110; Units: MG/DL; Status: F Test: BLOOD UREA NITROGEN; Value: 18; Range: 7-18; Units: MG/DL; Status: F Test: CREATININE FOR GFR; Value: 0.83; Range: 0.70-1.30; Units: MG/DL; Status: F Test: GLOMERULAR FILTRATION RATE; Value: > 60.0; Range: >42; Status: F Test: SODIUM LEVEL; Value: 142; Range: 136-145; Units: MEQ/L; Status: F Test: POTASSIUM SERUM; Value: 4.1; Range: 3.5-5.1; Units: MEQ/L; Status: F Test: CHLORIDE LEVEL; Value: 106; Range: 98-107; Units: MEQ/L; Status: F Test: CARBON DIOXIDE LEVEL; Value: 28; Range: 21-32; Units: MEQ/L; Status: F Test: ANION GAP; Value: 8; Range: 8-16; Units: MEQ/L; Status: F Test: CALCIUM LEVEL; Value: 8.7; Range: 8.8-10.2; Abnormal: Below low normal; Units: MG/DL; Status: F Test Note: ; Units are mL/min/1.73 m2 Chronic Kidney Disease Staging per NKF: Stage I & II GFR >=60 Normal to Mildly Decreased Stage III GFR 30-59 Moderately Decreased Stage IV GFR 15-29 Severely Decreased Stage V GFR <15 Very Little GFR Left ESRD GFR <15 on RN NEUROSURGICAL Lab Order: CBC with Diff; SPEC'M 10/22/16 00:06 Test: WHITE BLOOD COUNT; Value: 9.3; Range: 4.0-10.0; Units: K/mm3; Status: F Test: RED BLOOD COUNT; Value: 4.83; Range: 4.30-6.10; Units: M/mm3; Status: F Test: HEMOGLOBIN; Value: 15.8; Range: 14.0-18.0; Units: g/dl; Status: F Test: HEMATOCRIT; Value: 45.9; Range: 42.0-52.0; Units: %; Status: F Test: MEAN CORPUSCULAR VOLUME; Value: 95.1; Range: 80.0-96.0; Units: fl; Status: F Test: MEAN CORPUSCULAR HEMOGLOBIN; Value: 32.7; Range: 27.0-33.0; Units: pg; Status: F Test: MEAN CORPUSCULAR HGB CONC; Value: 34.4; Range: 32.0-36.5; Units: g/dl; Status: F Test: RED CELL DISTRIBUTION WIDTH; Value: 12.2; Range: 11.5-14.5; Units: %; Status: F Test: PLATELET COUNT, AUTOMATED; Value: 145; Range: 150-450; Abnormal: Below low normal; Units: k/mm3; Status: F Test: NEUTROPHILS %; Value: 67.3; Range: 36.0-66.0; Abnormal: Above high normal; Units: %; Status: F Test: LYMPH %; Value: 22.6; Range: 24.0-44.0; Abnormal: Below low normal; Units: %; Status: F Test: MONO %; Value: 6.6; Range: 0.0-5.0; Abnormal: Above high normal; Units: %; Status: F Test: EOS %; Value: 1.5; Range: 0.0-3.0; Units: %; Status: F Test: BASO %; Value: 0.2; Range: 0.0-1.0; Units: %; Status: F Test: LARGE UNSTAINED CELL %; Value: 1.9; Range: 0.0-4.0; Units: %; Status: F Test: NEUTROPHILS #; Value: 6.3; Range: 1.8-7.7; Units: K/mm3; Status: F Test: LYMPH #; Value: 2.1; Range: 1.5-4.5; Units: K/mm3; Status: F Test: MONO #; Value: 0.6; Range: 0.0-0.8; Units: K/mm3; Status: F Test: EOS #; Value: 0.1; Range: 0.0-0.50; Units: K/mm3; Status: F Test: BASO #; Value: 0.0; Range: 0.0-0.2; Units: K/mm3; Status: F Test: LARGE UNSTAINED CELL #; Value: 0.2; Range: 0.0-0.4; Units: K/mm3; Status: F Lab Order: Partial Thromboplastin Time; SPEC'M 10/22/16 00:06 Test: PARTIAL THROMBOPLASTIN TIME; Value: 26.4; Range: 26.6-37.1; Abnormal: Below low normal; Units: SECONDS; Status: F Lab Order: Prothrombin Time Profile\E\INR; SPEC'M 10/22/16 00:06 Test: PROTHROMBIN TIME; Value: 12.8; Range: 12.3-14.5; Units: SECONDS; Status: F Test: INR; Value: 0.95; Status: F Test Note: ; THERAPUTIC HUMAN INR VALUES INDICATIONS NORMAL RANGES PROPHYLAXIS/TREATMENT OF: VENOUS THROMBOSIS 2.0-3.0 PULMONARY EMBOLISM 2.0-3.0 PREVENTION OF SYSTEMIC EMBOLISM FROM: TISSUE HEART VALVES 2.0-3.0 ACUTE MYOCARDIAL INFARCTION 2.0-3.0 VALVULAR HEART DISEASE 2.0-3.0 ATRIAL FIBRILLATION 2.0-3.0 MECHANICAL VALVES(HIGH RISK) 2.5-3.5 RECURRENT MYOCARDIAL INFARCTION 2.5-3.5 Lab Order: Fingerstick Blood Sugar; SPEC'M 10/22/16 00:12 Test: BEDSIDE GLUCOSE; Value: 91; Range: 83-110; Units: MG/DL; Status: F Radiology Order: CT Head Without Contrast Test: CT Head Without Contrast REASON FOR EXAMINATION: dizziness, blurred vision; ; CLINICAL HISTORY: Dizzy.; TECHNIQUE: Multiple axial CT images were obtained through the brain without IV contrast material.; COMMENTS:; There is normal configuration of sella turcica. There are no intra or extra-axial collections. There; is no mass effect or midline shift. There is no evidence of hematoma formation. No hydrocephalus is p; resent. The ventricles are symmetrical. No abnormal calcifications are present.; There is diffuse age-appropriate cerebellar and cerebral atrophy with proportionally dilated ventricl; es and cortical sulci.; There are bilateral periventricular and subcortical white matter hypolucencies compatible with mild c; hronic microvascular disease.; Otherwise, no significant focal abnormalities are seen either in the posterior fossa or supratentoria; l compartment.; IMPRESSION:; 1. Age-appropriate cerebellar and cerebral atrophy.; 2. Mild chronic microvascular disease.; 3. No evidence of acute intracranial pathology.; Thank you for your kind referral of this patient.; ; ; Radiology Order: Chest, 2 View (pa\E\lat) Test: Chest, 2 View (pa\E\lat) REASON FOR EXAMINATION: dizziness; Clinical: Vertigo and dizziness .; ; Comparison: 06/22/2010 .; ; Technique: PA and lateral.; ; Findings:; The mediastinum and cardiac silhouette are normal. The lung malcolm demonstrate; chronic changes without obvious acute consolidation, effusion, or pneumothorax.; On lateral radiograph, I cannot exclude a subtle nodular density in the; infrahilar region which may warrant chest CT follow-up. The skeletal structures; are intact and normal.; ; Impression:; 1. Cannot exclude subtle infrahilar density on lateral radiograph. Chest CT; should be considered for further evaluation.; 2. Otherwise stable chronic changes.; ; ; Signed by; Fernando Fitzgerald MD 10/22/2016 08:12 A; Radiology Order: ECG WITH READING ER PHYS Test: ECG WITH READING ER PHYS REASON FOR EXAMINATION: Syncope; Stationary ECG Study; [facility] - ED; ; Test Date: 2016-10-22; Pat Name: THOMAS RAMOS Department:; Room: -; Gender: M Knuckle Bender: jillian; : 1945 Requested By: NATANAEL ARNETT; Order Number: [id number] Reading MD: Peggy Rogers; Measurements; Intervals [place]; Rate: 63 P: -41; KS: 110 QRS: 16; QRSD: 96 T: 65; QT: 388; QTc: 399; Interpretive Statements; SINUS RHYTHM WITH SHORT [place] INTERVAL; SUBTLE ST CHANGES IN INFERIOR LEADS REQUIRE CLINICAL CORRELATION FOR ISCHEMIA; NO PRIOR FOR COMPARISON; Electronically Signed On 10-22-2016 7:37:53 EST by Peggy Rogers; Outcome: 03:34 Discharge ordered by Provider. cs11 03:55 Discharge Assessment: patient administered narcotics - no. The following High Risk [facility] Discharge criteria are identified: None. Discharged to home ambulatory. Condition: good Condition: stable Condition: improved. CT Study completed. Property :Personal belongings accompany Pt. 03:58 Patient left the ED. kas2 Signatures: Dispatcher [employer] EDMS Indira Guy, Reg Reg gb Johnson Carrion, DIRECTOR GOVERNMENT DIRECTOR GOVERNMENT dd6 Natanael Arnett DO DO cs11 Gilmer Velázquez,RN Whitney Holliday, Jackscrew Man Unit Bing OlivaRN RN nn1 Carol Calabrese, Reg Reg hs2 Marj Hernandez RN RN kas2 Peggy Lowe Chart Complete MTDD
== END 2016-10-22 03:58 | disposition home or self-care (01) ==
LOC: M ED 22:56
DX: H83.09 Labyrinthitis, unspecified ear (principal); R35.1 Nocturia; I10 Essential (primary) hypertension; E78.5 Hyperlipidemia, unspecified; Z87.19 Personal history of other diseases of the digestive system; Z79.899 Other long term (current) drug therapy; Z79.82 Long term (current) use of aspirin; Z88.1 Allergy status to other antibiotic agents; F17.290 Nicotine dependence, other tobacco product, uncomplicated

== ENCOUNTER 2016-12-17 21:29 | Emergency (ER) | payer MEDICARE, BC, OTHER ==
[~2016-12-17] VITALS: Ht 182.9 cm; Wt 87.1 kg
[2016-12-17] MEDS ORDERED: TOPR50TA PO (22:00)
[2016-12-17 22:35] LABS: BASO % 0.6 % (0.0-1.0); EOS # 0.2 K/mm3 (0.0-0.50); EOS % 2.2 % (0.0-3.0); LARGE UNSTAINED CELL # 0.2 K/mm3 (0.0-0.4); LARGE UNSTAINED CELL % 1.9 % (0.0-4.0); LYMPH # 2.3 K/mm3 (1.5-4.5); LYMPH % 27.3 % (24.0-44.0); MEAN CORPUSCULAR HEMOGLOBIN 34.1 pg (27.0-33.0); MONO # 0.8 K/mm3 (0.0-0.8); NEUTROPHILS # 4.9 K/mm3 (1.8-7.7); PLATELET COUNT, AUTOMATED 157 k/mm3 (150-450); RED CELL DISTRIBUTION WIDTH 12.1 % (11.5-14.5); WHITE BLOOD COUNT 8.4 K/mm3 (4.0-10.0)
[2016-12-17 22:38] LABS: MEAN CORPUSCULAR HGB CONC 36.6 g/dl (32.0-36.5)
[2016-12-17 22:45] LABS: MAGNESIUM LEVEL 2.4 MG/DL (1.8-2.4); PHOSPHORUS LEVEL 2.8 MG/DL (2.5-4.9)
[2016-12-17 22:49] LABS: ANION GAP 12 MEQ/L (8-16); BLOOD UREA NITROGEN 14 MG/DL (7-18); CALCIUM LEVEL 8.9 MG/DL (8.8-10.2); CARBON DIOXIDE LEVEL 26 MEQ/L (21-32); CHLORIDE LEVEL 108 MEQ/L (98-107); CREATININE FOR GFR 0.89 MG/DL (0.70-1.30); FREE T4 1.05 NG/DL (0.76-1.46); GLOMERULAR FILTRATION RATE > 60.0 (>42); GLUCOSE, FASTING 93 MG/DL (83-110); POTASSIUM SERUM 4.1 MEQ/L (3.5-5.1); SODIUM LEVEL 146 MEQ/L (136-145)
[2016-12-17 23:53] VITALS: BP 114/74
--- NOTE | 2016-12-18 09:06 | REP ---
Portable chest x-ray: Sitting AP view. History: Chest pain. Comparison chest x-ray October 21, 2016. Findings: The lungs are well inflated and clear. Pleural angles are sharp. Cardiomediastinal silhouette and bony thorax are unremarkable and unchanged. EKG electrodes are seen. Impression: No active disease. Signed by Blayne Dyer MD 12/18/2016 12:16 P
--- NOTE | 2016-12-18 12:32 | ECGEPIP ---
Stationary ECG Study [facility] - ED Test Date: 2016-12-17 Pat Name: TIFFANIE TALBOT Department: Room: - Gender: M Digital Account Coordinator: DickersonB: 1945 Requested By: KATIA Garcia Order Number: [id number] Reading MD: Peggy Rogers Measurements Intervals [place] Rate: 65 P: -47 MT: 109 QRS: 11 QRSD: 105 T: 74 QT: 398 QTc: 416 Interpretive Statements SINUS RHYTHM WITH SHORT MT INTERVAL INFERIOR MYOCARDIAL INFARCTION, POSSIBLY ACUTE CO, CLINICAL CORRELATION NEEDED COMPARISON 10/22/16 Electronically Signed On 12-18-2016 12:32:12 EDT by Peggy Rogers
== END 2016-12-18 00:05 | disposition short-term general hospital (02) ==
LOC: M ED 22:28
DX: I48.91 Unspecified atrial fibrillation (principal); I10 Essential (primary) hypertension; E78.5 Hyperlipidemia, unspecified; M54.5 Low back pain; Z88.1 Allergy status to other antibiotic agents; Z79.899 Other long term (current) drug therapy

== ENCOUNTER → 2017-07-16 | Outpatient (CLI) | payer MEDICARE, BC, OTHER ==
[~2017-07-16] MED LIST changes: +TOPR50TA PO; -VITA100037 PO; +VITA100067 PO
== END ==
LOC: M WUC 10:22
PROVIDERS: ATTEND Internal Medicine Cardiovascular Disease
DX: E78.00 Pure hypercholesterolemia, unspecified (principal)

== ENCOUNTER → 2018-05-27 | Outpatient (REF) | payer MEDICARE, BC, OTHER | LOC: M LAB REF 11:06 | DX: R19.7 Diarrhea, unspecified (principal) | CPT/HCPCS: 87507 ==

== ENCOUNTER → 2018-07-30 | Outpatient (CLI) | payer MEDICARE, BC, OTHER ==
[2018-07-30 09:34] LABS: ALBUMIN/GLOBULIN RATIO 1.25 (1.00-1.93); ALKALINE PHOSPHATASE 57 U/L (45-117); ALT/SGPT 61 U/L (12-78); ANION GAP 5 MEQ/L (8-16); AST/SGOT 35 U/L (7-37); BILIRUBIN,TOTAL 1.2 MG/DL (0.2-1.0); BLOOD UREA NITROGEN 17 MG/DL (7-18); CALCIUM LEVEL 9.8 MG/DL (8.8-10.2); CARBON DIOXIDE LEVEL 32 MEQ/L (21-32); CHLORIDE LEVEL 107 MEQ/L (98-107); CHOLESTEROL LEVEL 170 MG/DL (<200); CHOLESTEROL RISK RATIO 2.786 (<5); GLOMERULAR FILTRATION RATE > 60.0 (>42); GLUCOSE, FASTING 85 MG/DL (70-100); HDL CHOLESTEROL 61 MG/DL (>40); LDL CHOLESTEROL 77 MG/DL (<100); NON-HDL-C 109 MG/DL; POTASSIUM SERUM 4.4 MEQ/L (3.5-5.1); PSA SCREENING 1.37 NG/ML (< 4.0); SODIUM LEVEL 144 MEQ/L (136-145); TOTAL PROTEIN 7.2 GM/DL (6.4-8.2); TRIGLYCERIDES LEVEL 162 MG/DL (<150)
[2018-07-30 12:38] LABS: GOLD SPEC TUBE RECIEVED
== END ==
LOC: M WUC 08:22
DX: I10 Essential (primary) hypertension (principal); N40.1 Benign prostatic hyperplasia with lower urinary tract symptoms; E78.2 Mixed hyperlipidemia
CPT/HCPCS: 80053

== ENCOUNTER → 2018-08-01 | Outpatient (REF) | payer MEDICARE, BC, OTHER ==
[2018-08-01 12:26] LABS: APPEARANCE, URINE CLOUDY (CLEAR); BACTERIA, URINE AUTO NEGATIVE (NEGATIVE); BILIRUBIN, URINE AUTO NEGATIVE (NEGATIVE); BLOOD, URINE BLOOD NEGATIVE (NEGATIVE); CALCIUM OXALATE CRYSTALS SMALL; COLOR, URINE AMBER (YELLOW); GLUCOSE, URINE (UA) AUTO NEGATIVE (NEGATIVE); KETONE, URINE AUTO NEGATIVE (NEGATIVE); LEUKOCYTE ESTERASE, URINE AUTO NEGATIVE (NEGATIVE); MUCUS, URINE SMALL (NEGATIVE); NITRITE, URINE AUTO NEGATIVE (NEGATIVE); PROTEIN, URINE AUTO NEGATIVE (NEGATIVE); RBC, URINE AUTO 0 /HPF (0-3); SPECIFIC GRAVITY URINE AUTO 1.019 (1.002-1.035); SQUAMOUS EPITHELIAL CELL UR AU 0 /HPF (0-6); UROBILINOGEN, URINE AUTO 0.2 mg/dL (0.0-2.0); WBC, URINE AUTO 1 /HPF (0-3)
== END ==
LOC: M SMT 11:55
DX: R35.1 Nocturia (principal)
CPT/HCPCS: 81001

== ENCOUNTER → 2018-10-16 | Outpatient (CLI) | payer MEDICARE, BC, OTHER ==
[~2018-10-16] MED LIST changes: -TOPR50TA PO; +TOPR50TA23 PO
[2018-10-16 09:43] LABS: BLOOD UREA NITROGEN 18 MG/DL (7-18); CALCIUM LEVEL 9.8 MG/DL (8.8-10.2); CARBON DIOXIDE LEVEL 29 MEQ/L (21-32); CHLORIDE LEVEL 103 MEQ/L (98-107); CREATININE FOR GFR 0.97 MG/DL (0.70-1.30); GLOMERULAR FILTRATION RATE > 60.0 (>42); GLUCOSE, FASTING 86 MG/DL (70-100); POTASSIUM SERUM 4.5 MEQ/L (3.5-5.1); SODIUM LEVEL 138 MEQ/L (136-145)
== END ==
LOC: M WUC 08:05
PROVIDERS: ATTEND Internal Medicine Cardiovascular Disease
DX: Z51.81 Encounter for therapeutic drug level monitoring (principal); Z79.899 Other long term (current) drug therapy; I10 Essential (primary) hypertension

== ENCOUNTER → 2019-02-12 | Outpatient (CLI) | payer MEDICARE, BC, OTHER ==
[~2019-02-12] MED LIST changes: +FLUT50SP12; -FLUTISP; +TOPR50TA PO; -TOPR50TA23 PO; +VITA500T17 PO; -VITA500T53 PO
[2019-02-12 13:06] LABS: HEMATOCRIT 46.1 % (42.0-52.0); HEMOGLOBIN 15.3 g/dl (13.5-17.5); MEAN CORPUSCULAR HEMOGLOBIN 31.8 pg (27.0-33.0); MEAN CORPUSCULAR HGB CONC 33.2 g/dl (32.0-36.5); MEAN CORPUSCULAR VOLUME 95.8 fl (80.0-96.0); PLATELET COUNT, AUTOMATED 169 10^3/uL (150-450); RED BLOOD COUNT 4.81 10^6/uL (4.30-6.10); WHITE BLOOD COUNT 7.9 10^3/uL (4.0-10.0)
[2019-02-12 13:29] LABS: ALBUMIN 4.3 GM/DL (3.2-5.2); ALT/SGPT 60 U/L (12-78); AMYLASE 28 U/L (25-115); BILIRUBIN,TOTAL 1.1 MG/DL (0.2-1.0); BLOOD UREA NITROGEN 24 MG/DL (7-18); C REACTIVE PROTEIN QUANTITATIV < 0.30 MG/DL (0.00-0.30); CALCIUM LEVEL 9.7 MG/DL (8.8-10.2); CARBON DIOXIDE LEVEL 30 MEQ/L (21-32); CHLORIDE LEVEL 108 MEQ/L (98-107); CREATININE FOR GFR 1.02 MG/DL (0.70-1.30); GLOMERULAR FILTRATION RATE > 60.0 (>42); GLUCOSE, FASTING 96 MG/DL (70-100); LIPASE 152 U/L (73-393); POTASSIUM SERUM 4.8 MEQ/L (3.5-5.1); SODIUM LEVEL 142 MEQ/L (136-145); THYROXINE (T4) 8.6 UG/DL (4.5-12.0); TOTAL PROTEIN 7.5 GM/DL (6.4-8.2)
[2019-02-12 13:57] LABS: ERYTHROCYTE SEDIMENTATION RATE 6 mm/hr (0-20)
[2019-02-14 10:11] LABS: TISSUE TRANSGLUTAMINASE IgA <2 U/mL (0-3); TISSUE TRANSGLUTAMINASE IgG <2 U/mL (0-5); UNITSIGA FOR GLIADIN IGA 2 units (0-19); UNITSIGG FOR GLIADIN IGG 2 units (0-19)
== END ==
LOC: M WUC 08:29
PROVIDERS: ATTEND Internal Medicine Gastroenterology
DX: R19.7 Diarrhea, unspecified (principal)

== ENCOUNTER → 2019-02-14 | Outpatient (CLI) | payer MEDICARE, BC, OTHER ==
[~2019-02-14] MED LIST changes: +E-Z-PAQUE 96% w/w SUSP 176GM BTL As Ordered ONE
--- NOTE | 2019-02-14 20:07 | REP ---
Examination Requested: SBFT Reason For Exam: Diarrhea Small Bowel Follow Through The procedure was performed by PATEL Hawthorne, under the direct supervision of Dr. Dyer. The images were reviewed with Dr. Dyer. Clinical Resource Director film demonstrates a density in the right upper quadrant, as well as a one in the left upper quadrant. These most likely correspond to a gallstone and left renal stone noted on a CT scan dated 01/27/2016. The barium was administered and the barium column was followed through the small bowel to the level of the terminal ileum. Small bowel transit time was approximately 30 minutes. During fluoroscopy gentle palpation shows all loops are freely mobile and pliable. There are no fixed or angulated loops. The small bowel mucosal pattern is normal in course and caliber. There is no transition to set suggest a partial small-bowel obstruction. Spot filming of the terminal ileum shows it to be unremarkable. Impression; 1. Unremarkable small bowel follow-through 2. Incidental findings as described above 0.8 minutes of fluoroscopy time was utilized for this procedure. Reviewed by PATEL Christopher 02/14/2019 04:29 P Electronically Signed by Blayne Dyer MD 02/14/2019 07:57 P
== END ==
LOC: M RAD 08:11
PROVIDERS: ATTEND Internal Medicine Gastroenterology
DX: R19.7 Diarrhea, unspecified (principal)

== ENCOUNTER → 2019-03-05 | Outpatient (REF) | payer MEDICARE, BC, OTHER ==
[~2019-03-05] MED LIST changes: -E-Z-PAQUE 96% w/w SUSP 176GM BTL As Ordered ONE
== END ==
LOC: M LAB REF 19:09
PROVIDERS: ATTEND Surgery
DX: D03.59 Melanoma in situ of other part of trunk (principal)

== ENCOUNTER → 2019-07-14 | Outpatient (CLI) | payer MEDICARE, BC, OTHER ==
[2019-07-14 09:58] LABS: ALT/SGPT 55 U/L (12-78); BILIRUBIN,TOTAL 0.9 MG/DL (0.2-1.0); BLOOD UREA NITROGEN 24 MG/DL (7-18); CALCIUM LEVEL 9.7 MG/DL (8.8-10.2); CARBON DIOXIDE LEVEL 31 MEQ/L (21-32); CHLORIDE LEVEL 107 MEQ/L (98-107); CREATININE FOR GFR 0.98 MG/DL (0.70-1.30); GLOMERULAR FILTRATION RATE > 60.0 (>42); GLUCOSE, FASTING 101 MG/DL (70-100); POTASSIUM SERUM 4.5 MEQ/L (3.5-5.1); SODIUM LEVEL 142 MEQ/L (136-145); TOTAL PROTEIN 7.3 GM/DL (6.4-8.2)
== END ==
LOC: M WUC 08:39
PROVIDERS: ATTEND Physician Assistant
DX: I10 Essential (primary) hypertension (principal)

== ENCOUNTER → 2020-05-12 | Outpatient (CLI) | payer MEDICARE, BC, OTHER ==
[~2020-05-12] MED LIST changes: +E-Z-GAS II EFFERVESCENT PACKET (SODIUM BICARB./CITRIC ACID/SIMETHICONE) As Ordered ONE; +E-Z-HD 98% w/w 340GM SUSP BTL As Ordered ONE; +E-Z-PAQUE 96% w/w SUSP 176GM BTL As Ordered ONE
--- NOTE | 2020-08-04 14:42 | REP ---
AIR CONTRAST ESOPHAGRAM: The procedure was performed under the direct supervision of Dr. Dyer. The images were reviewed with Dr. Dyer. FINDINGS: A single view patient chest x-ray is submitted as a salt maker film. The superior mediastinal structures are midline. The heart size is normal. The lungs are clear. There is a dual lead pacemaker in place. Liquid barium and gas-producing granules were given in the erect position as well as liquid barium in the prone oblique positions in order to perform a double contrast esophagram examination. The oral and pharyngeal stages of deglutition are unremarkable. Esophageal transport is prompt and efficient and there is no esophagitis stricture, mucosal ring or hiatal hernia. There is gastroesophageal reflux demonstrated to the level of the thoracic inlet. IMPRESSION: There is gastroesophageal reflux demonstrated to the level of the thoracic inlet. Otherwise, unremarkable double contrast esophagram examination. 0.7 minutes of fluoroscopy time was utilized for this procedure. [facility]
== END ==
LOC: M RAD 09:00
PROVIDERS: ATTEND Otolaryngology
DX: K21.9 Gastro-esophageal reflux disease without esophagitis (principal)

== ENCOUNTER → 2020-06-12 | Outpatient (CLI) | payer MEDICARE, BC, OTHER ==
[~2020-06-12] MED LIST changes: -E-Z-GAS II EFFERVESCENT PACKET (SODIUM BICARB./CITRIC ACID/SIMETHICONE) As Ordered ONE; -E-Z-HD 98% w/w 340GM SUSP BTL As Ordered ONE; -E-Z-PAQUE 96% w/w SUSP 176GM BTL As Ordered ONE
[2020-06-12 18:11] LABS: BASO # 0.1 10^3/uL (0.0-0.2); EOS # 0.2 10^3/uL (0.0-0.5); EOS % 2.5 % (0.0-3.0); HEMATOCRIT 49.4 % (42.0-52.0); HEMOGLOBIN 16.2 g/dl (13.5-17.5); LYMPH % 24.8 % (24.0-44.0); MEAN CORPUSCULAR HEMOGLOBIN 31.8 pg (27.0-33.0); MEAN CORPUSCULAR HGB CONC 32.8 g/dl (32.0-36.5); MEAN CORPUSCULAR VOLUME 97.1 fl (80.0-96.0); MONO # 0.9 10^3/uL (0.0-0.8); MONO % 11.1 % (0.0-5.0); NEUTROPHILS # 4.7 10^3/uL (1.5-8.5); NEUTROPHILS % 60.2 % (36.0-66.0); PLATELET COUNT, AUTOMATED 208 10^3/uL (150-450); RED BLOOD COUNT 5.09 10^6/uL (4.30-6.10); WHITE BLOOD COUNT 7.9 10^3/uL (4.0-10.0)
[2020-06-12 18:17] LABS: ALBUMIN 4.1 GM/DL (3.2-5.2); ALT/SGPT 69 U/L (12-78); BILIRUBIN,TOTAL 1.1 MG/DL (0.2-1.0); BLOOD UREA NITROGEN 14 MG/DL (7-18); CALCIUM LEVEL 9.7 MG/DL (8.8-10.2); CARBON DIOXIDE LEVEL 33 MEQ/L (21-32); CHLORIDE LEVEL 106 MEQ/L (98-107); CHOLESTEROL LEVEL 137 MG/DL (<200); CHOLESTEROL RISK RATIO 4.151 (<5); CREATININE FOR GFR 0.86 MG/DL (0.70-1.30); GLOMERULAR FILTRATION RATE > 60.0 (>42); GLUCOSE, FASTING 100 MG/DL (70-100); HDL CHOLESTEROL 33 MG/DL (>40); LDL CHOLESTEROL 72 MG/DL (<100); NON-HDL-C 104 MG/DL; POTASSIUM SERUM 4.5 MEQ/L (3.5-5.1); SODIUM LEVEL 140 MEQ/L (136-145); TOTAL PROTEIN 7.8 GM/DL (6.4-8.2); TRIGLYCERIDES LEVEL 159 MG/DL (<150)
== END ==
LOC: M WUC 08:44
PROVIDERS: ATTEND Internal Medicine Cardiovascular Disease
DX: Z51.81 Encounter for therapeutic drug level monitoring (principal); Z79.899 Other long term (current) drug therapy; E78.2 Mixed hyperlipidemia; I10 Essential (primary) hypertension

== ENCOUNTER → 2020-10-25 | Outpatient (CLI) | payer MEDICARE, BC, OTHER ==
--- NOTE | 2020-10-25 08:46 | REP ---
INDICATION: DNS, CHRONIC PANSINUSITIS. COMPARISON: Comparison CT study June 28, 2016.. TECHNIQUE: Helical scanning is acquired and 2 mm axial images re-formatted. Coronal MPR images are generated and reviewed. FINDINGS: Preliminary digital mixing engineer radiographs are unremarkable. The frontal sinuses are clear bilaterally. There are mild mucosal changes in the anterior ethmoid air cells, right greater than left. Sphenoid sinus air cells are clear. Maxillary sinuses show minimal 1-2 mm mucosal thickening in the right maxillary sinus and S tiny mucous retention cyst is seen inferolaterally in the left maxillary sinus. There is mild mucosal thickening at the ostium of the OMC on the right. The ostiomeatal complex on the left appears widely patent. There is minimal mucosal thickening here. Nasal ethmoid recesses are patent. There is deformity, rightward deviation, and focal attenuation of the thickness of the nasal septum at mid septal level. These findings in the nasal septum are unchanged. The mucosal changes at the ostiomeatal complex region and right maxillary sinus region are stable. The ethmoid septal thickening is more pronounced than on the prior study. No intraorbital or intracranial abnormality is seen. IMPRESSION: Mild mucosal changes in the maxillary and ethmoid air cells as above. Mucosal thickening affecting the ostial region of the ostiomeatal complexes right greater than left. Stable deformity of the nasal septum. <Electronically signed by Juan Dyer > 10/25/20 2219
== END ==
LOC: M RAD 08:00
PROVIDERS: ATTEND Otolaryngology
DX: J34.2 Deviated nasal septum (principal); J32.4 Chronic pansinusitis

== ENCOUNTER → 2024-09-10 | Outpatient (CLI) | payer MEDICARE, BC, OTHER ==
[~2024-09-10] MED LIST changes: -AZOR5TAB4 PO; +[UNRECOGNIZED DRUG - CODE] PO
[2024-09-10 11:31] LABS: BASO % 0.4 % (0.0-1.0); EOS # 0.2 10^3/uL (0.0-0.5); EOS % 1.9 % (0.0-3.0); HEMATOCRIT 41.4 % (42.0-52.0); HEMOGLOBIN 13.9 g/dl (13.5-17.5); LYMPH # 2.1 10^3/uL (1.5-5.0); LYMPH % 22.8 % (24.0-44.0); MEAN CORPUSCULAR HEMOGLOBIN 32.2 pg (27.0-33.0); MEAN CORPUSCULAR HGB CONC 33.6 g/dl (32.0-36.5); MEAN CORPUSCULAR VOLUME 95.8 fl (80.0-96.0); MONO # 1.2 10^3/uL (0.0-0.8); MONO % 13.6 % (2.0-8.0); NEUTROPHILS # 5.5 10^3/uL (1.5-8.5); NEUTROPHILS % 61.1 % (36.0-66.0); PLATELET COUNT, AUTOMATED 128 10^3/uL (150-450); RED BLOOD COUNT 4.32 10^6/uL (4.30-6.10); WHITE BLOOD COUNT 9.1 10^3/uL (4.0-10.0)
[2024-09-10 11:53] LABS: HEMOGLOBIN A1c 5.1 % (4.0-6.0)
[2024-09-10 12:03] LABS: ALKALINE PHOSPHATASE 65 U/L (40-129); ALT/SGPT 53 U/L (7.0-40); AST/SGOT 46 U/L (<34); BILIRUBIN,TOTAL 1.4 MG/DL (0.3-1.2); BLOOD UREA NITROGEN 23 MG/DL (9-23); CALCIUM LEVEL 10.1 MG/DL (8.3-10.6); CARBON DIOXIDE LEVEL 31 MMOL/L (20-31); CHLORIDE LEVEL 107 MMOL/L (98-107); CREATININE FOR GFR 0.93 MG/DL (0.70-1.30); GLOMERULAR FILTRATION RATE > 60.0 (>35); GLUCOSE, FASTING 116 MG/DL (74-106); POTASSIUM SERUM 4.4 MMOL/L (3.5-5.1); SODIUM LEVEL 142 MMOL/L (136-145); TOTAL PROTEIN 7.3 G/DL (5.7-8.2)
== END ==
LOC: M WUC 09:36
PROVIDERS: ATTEND Nurse Practitioner Family
DX: I10 Essential (primary) hypertension (principal); E78.2 Mixed hyperlipidemia; R73.01 Impaired fasting glucose

== ENCOUNTER → 2025-02-06 | Outpatient (CLI) | payer MEDICARE, BC, OTHER ==
[2025-02-06 12:33] LABS: BASO % 0.5 % (0.0-1.0); EOS # 0.1 10^3/uL (0.0-0.5); EOS % 1.2 % (0.0-3.0); HEMATOCRIT 37.7 % (42.0-52.0); HEMOGLOBIN 12.5 g/dl (13.5-17.5); LYMPH # 1.3 10^3/uL (1.5-5.0); LYMPH % 17.3 % (24.0-44.0); MEAN CORPUSCULAR HEMOGLOBIN 32.7 pg (27.0-33.0); MEAN CORPUSCULAR HGB CONC 33.2 g/dl (32.0-36.5); MEAN CORPUSCULAR VOLUME 98.7 fl (80.0-96.0); MONO # 1.1 10^3/uL (0.0-0.8); MONO % 14.3 % (2.0-8.0); NEUTROPHILS % 66.4 % (36.0-66.0); PLATELET COUNT, AUTOMATED 116 10^3/uL (150-450); RED BLOOD COUNT 3.82 10^6/uL (4.30-6.10); WHITE BLOOD COUNT 7.6 10^3/uL (4.0-10.0)
[2025-02-06 13:05] LABS: ALBUMIN 3.5 G/DL (3.2-5.2); BILIRUBIN,TOTAL 1.9 MG/DL (0.3-1.2); CALCIUM LEVEL 9.5 MG/DL (8.3-10.6); CREATININE FOR GFR 0.89 MG/DL (0.70-1.30); GLOMERULAR FILTRATION RATE 86.1 (>35); POTASSIUM SERUM 4.6 MMOL/L (3.5-5.1); TOTAL PROTEIN 6.5 G/DL (5.7-8.2)
[2025-02-06 13:09] LABS: FREE T4 1.53 NG/DL (0.89-1.76)
[2025-02-06 13:11] LABS: THYROID STIMULATING HORMONE 1.888 uIU/ML (0.55-4.78)
== END ==
LOC: M WUC 10:32
PROVIDERS: ATTEND Nurse Practitioner Family
DX: R14.0 Abdominal distension (gaseous) (principal); Z79.899 Other long term (current) drug therapy

== ENCOUNTER 2025-06-27 14:47 | Observation (INO) | payer MEDICARE, BC, OTHER ==
[~2025-06-27] VITALS: Ht 180.3 cm; Wt 87.7 kg
[~2025-06-27 14:47] MED LIST changes: -VITA500T17 PO; +VITA500T8 PO
[2025-06-27 15:49] LABS: CALCIUM LEVEL 9.5 MG/DL (8.3-10.6); CARBON DIOXIDE LEVEL 28.0 MMOL/L (20-31); CHLORIDE LEVEL 108.0 MMOL/L (98-107); CREATININE FOR GFR 0.88 MG/DL (0.70-1.30); GLOMERULAR FILTRATION RATE 86.4 (>35); POTASSIUM SERUM 3.8 MMOL/L (3.5-5.1); SODIUM LEVEL 142.0 MMOL/L (136-145)
[2025-06-27 15:52] LABS: BASO # 0.1 10^3/uL (0.0-0.2); BASO % 0.8 % (0.0-1.0); EOS # 0.2 10^3/uL (0.0-0.5); EOS % 2.3 % (0.0-3.0); LYMPH # 1.8 10^3/uL (1.5-5.0); LYMPH % 22.2 % (24.0-44.0); MONO # 1.1 10^3/uL (0.0-0.8); MONO % 14.2 % (2.0-8.0); NEUTROPHILS # 4.8 10^3/uL (1.5-8.5); NEUTROPHILS % 60.2 % (36.0-66.0); PLATELET COUNT, AUTOMATED 111 10^3/uL (150-450)
[2025-06-27] MEDS: MIDAZOLAM INJ 2 MG/2 ML VIAL IV ONE (16:25)
[2025-06-27] MEDS ORDERED: NALOXONE INJ 0.4 MG/1 ML VIAL IV PRN (16:50)
[2025-06-27] MEDS ORDERED: ONDANSETRON 4MG 2ML VIAL IV PRN (16:55)
[2025-06-27] MEDS ORDERED: ACETAMINOPHEN 325 MG TAB PO PRN (16:55)
[2025-06-27] MEDS ORDERED: HYDROMORPHONE HCL 0.5 MG/0.5 ML SYRINGE IV PRN (16:55)
[2025-06-27 17:31] LABS: INR 1.11
[2025-06-27] MEDS ORDERED: METO1TAB7 PO (17:36)
[2025-06-27] MEDS ORDERED: TAMS-18 PO (17:36)
[2025-06-27] MEDS ORDERED: EZET10TA57 PO (17:36)
[2025-06-27] MEDS ORDERED: FLEC50HA PO (17:36)
[2025-06-27] MEDS ORDERED: ATOR1TAB19 PO (17:36)
[2025-06-27] MEDS: PERCOCET 5MG/325MG TAB PO ONE (17:36)
[2025-06-27] MEDS ORDERED: AMLO-321 PO (17:36)
[2025-06-27] MEDS ORDERED: OMEP-173 PO (17:36)
[2025-06-27] MEDS ORDERED: HOME MED LIST COMPLETE! XX SCH (17:40)
[2025-06-27] MEDS: NS (Normal Saline) 0.9% 1,000 ML IV SCH (17:49)
[2025-06-27] MEDS: KETOROLAC 30 MG/ML 1 ML VIAL IV SCH (18:54)
[2025-06-27] MEDS ORDERED: PERCOCET 5MG/325MG TAB PO PRN (23:00)
[2025-06-28] VITALS (8 sets, daily range): BP systolic 132–149; BP diastolic 60–68; TEMP 97.5–98.2; O2SAT 94–97
[2025-06-28 07:21] LABS: PLATELET COUNT, AUTOMATED 114 10^3/uL (150-450)
[2025-06-28 07:57] LABS: CALCIUM LEVEL 9.1 MG/DL (8.3-10.6); CARBON DIOXIDE LEVEL 28.0 MMOL/L (20-31); CHLORIDE LEVEL 107.0 MMOL/L (98-107); CREATININE FOR GFR 0.84 MG/DL (0.70-1.30); GLOMERULAR FILTRATION RATE 87.6 (>35); POTASSIUM SERUM 4.0 MMOL/L (3.5-5.1); SODIUM LEVEL 141.0 MMOL/L (136-145)
[2025-06-28] MEDS: EZETIMIBE 10 MG TABLET PO SCH (08:02)
[2025-06-28] MEDS: FLECAINIDE 50 MG TABLET PO SCH (08:03)
[2025-06-28] MEDS: METOPROLOL SUCC. 50 MG *XL* TAB PO SCH ×2 (08:03→21:41)
[2025-06-28] MEDS: ATORVASTATIN 10 MG TAB PO SCH (08:16)
[2025-06-28] MEDS ORDERED: ONDANSETRON 4MG 2ML VIAL IV PRN (08:30)
[2025-06-28] MEDS ORDERED: HYDROMORPHONE HCL 0.5 MG/0.5 ML SYRINGE IV PRN (08:30)
[2025-06-28] MEDS: dexAMETHasone 10 MG/1 ML VIAL PRES.FREE PN ONE (08:30)
[2025-06-28] MEDS ORDERED: MIDAZOLAM INJ 2 MG/2 ML VIAL IV PRN (08:30)
[2025-06-28] MEDS: LR 1,000 ML IV SCH (08:30)
[2025-06-28] MEDS ORDERED: ROCURONIUM BROMIDE 50MG/5ML VIAL As Ordered ONE (08:40)
[2025-06-28] MEDS ORDERED: LIDOCAINE 2% 100 MG/5 ML SDV (FOR ANES.) As Ordered ONE (08:40)
[2025-06-28] MEDS ORDERED: MIDAZOLAM INJ 2 MG/2 ML VIAL As Ordered ONE (08:48)
[2025-06-28] MEDS: ROPIvacaine 0.5% 30ML VIAL As Ordered ONE (08:50)
[2025-06-28] MEDS: VANCOMYCIN 1000MG/20ML VIAL As Ordered ONE (09:00)
[2025-06-28] MEDS ORDERED: amLODIPine 5 MG TAB PO SCH (09:00)
[2025-06-28] MEDS: dexAMETHasone 10 MG/1 ML VIAL PRES.FREE As Ordered ONE (09:06)
[2025-06-28] MEDS: ROPIvacaine 0.5% 30ML VIAL PN ONE (09:06)
[2025-06-28] MEDS: TRANEXAMIC ACID 100 MG/ML 10ML VIAL As Ordered ONE (09:44)
[2025-06-28] MEDS ORDERED: ONDANSETRON 4MG 2ML VIAL As Ordered ONE (09:55)
[2025-06-28] MEDS ORDERED: dexAMETHasone 4 MG/ML 1 ML VIAL As Ordered ONE (09:55)
[2025-06-28] MEDS ORDERED: PERC5TAB12 PO (11:59)
[2025-06-28] MEDS: ceFAZolin SODIUM 2 GM in DEXTROSE 5% (D5W) ADV/MINI-BAG 50 ML IV SCH (17:37)
[2025-06-28] MEDS ORDERED: TAMSULOSIN 0.4 MG CAP PO SCH (21:00)
[2025-06-28] MEDS: PERCOCET 5MG/325MG TAB PO PRN (21:39)
[2025-06-28] MEDS: amLODIPine 5 MG TAB PO SCH (21:40)
[2025-06-29 02:00] VITALS: BP 134/60; TEMP 97.9; O2SAT 96
[2025-06-29 05:04] VITALS: BP 135/60; TEMP 98.1; O2SAT 95
[2025-06-29 07:09] LABS: PLATELET COUNT, AUTOMATED 124 10^3/uL (150-450)
[2025-06-29 07:45] LABS: CALCIUM LEVEL 9.2 MG/DL (8.3-10.6); CARBON DIOXIDE LEVEL 28.0 MMOL/L (20-31); CHLORIDE LEVEL 107.0 MMOL/L (98-107); CREATININE FOR GFR 0.92 MG/DL (0.70-1.30); GLOMERULAR FILTRATION RATE 83.6 (>35); POTASSIUM SERUM 4.7 MMOL/L (3.5-5.1); SODIUM LEVEL 140.0 MMOL/L (136-145)
[2025-06-29] MEDS ORDERED: PERCOCET 5MG/325MG TAB PO PRN (08:50)
[2025-06-29] MEDS ORDERED: PILL CUTTER 1 EACH XX PRN (09:05)
[2025-06-29] MEDS: ENOXAPARIN 40 MG/0.4 ML SYRINGE (J1650 PER 10MG) SC SCH (09:52)
[2025-06-29] MEDS: TAMSULOSIN 0.4 MG CAP PO SCH (09:53)
[2025-06-29 09:55] VITALS: BP 135/60
== END 2025-06-29 14:10 | disposition home or self-care (01) ==
LOC: M ED 14:47 → INTOOBSV 16:45 → M ED INP 16:45 → M MS5PR 06-28 12:03
PROVIDERS: ADMIT General Practice; ATTEND General Practice
DX: S82.852A Displaced trimalleolar fracture of left lower leg, initial encounter for closed fracture (principal); S00.81XA Abrasion of other part of head, initial encounter; S50.311A Abrasion of right elbow, initial encounter; S40.811A Abrasion of right upper arm, initial encounter; V83.4XXA Person injured while boarding or alighting from special industrial vehicle, initial encounter; Y92.89 Other specified places as the place of occurrence of the external cause; Y93.H3 Activity, building and construction; R00.1 Bradycardia, unspecified; I49.5 Sick sinus syndrome; Z95.0 Presence of cardiac pacemaker; I47.10 Supraventricular tachycardia, unspecified; Z98.890 Other specified postprocedural states; I45.10 Unspecified right bundle-branch block; I10 Essential (primary) hypertension; K21.9 Gastro-esophageal reflux disease without esophagitis; E78.00 Pure hypercholesterolemia, unspecified; K52.839 Microscopic colitis, unspecified; N52.9 Male erectile dysfunction, unspecified; M51.86 Other intervertebral disc disorders, lumbar region; J30.9 Allergic rhinitis, unspecified; R35.1 Nocturia; N40.1 Benign prostatic hyperplasia with lower urinary tract symptoms; Z83.3 Family history of diabetes mellitus; Z82.49 Family history of ischemic heart disease and other diseases of the circulatory system; Z80.52 Family history of malignant neoplasm of bladder; Z82.3 Family history of stroke; Z87.891 Personal history of nicotine dependence; Z88.1 Allergy status to other antibiotic agents; Z79.899 Other long term (current) drug therapy; F17.290 Nicotine dependence, other tobacco product, uncomplicated
CPT/HCPCS: 27822; 29405; 36415; 70450; 71045; 72125; 73610; 73700; 76000; 80048; 85025; 85027; 85610; 85730; 87486; 87581; 87633; 87798; 93005; 96372; 96374; 96375; 96376; 97116; 97161; 97165; 97530; 97535; 99285; C1713; J0688; J1100; J1650; J1885; J2250; J2405; J2795; J3010

== ENCOUNTER → 2025-07-09 | Outpatient (CLI) | payer MEDICARE, BC, OTHER ==
[~2025-07-09] MED LIST changes: +AMLO-321 PO; +EZET10TA57 PO; +FLEC50HA PO; +METO1TAB7 PO; +OMEP-173 PO; +PERC5TAB12 PO; +TAMS-18 PO
== END ==
LOC: M RAD 14:50
PROVIDERS: ATTEND Orthopaedic Surgery
DX: M79.89 Other specified soft tissue disorders (principal); S82.852D Displaced trimalleolar fracture of left lower leg, subsequent encounter for closed fracture with routine healing

== ENCOUNTER → 2025-07-29 | Outpatient (CLI) | payer MEDICARE, BC, OTHER | LOC: M SOG 07:33 | PROVIDERS: ATTEND Physician Assistant | DX: S82.852D Displaced trimalleolar fracture of left lower leg, subsequent encounter for closed fracture with routine healing (principal); W18.30XD Fall on same level, unspecified, subsequent encounter ==

== ENCOUNTER → 2025-08-19 | Outpatient (CLI) | payer MEDICARE, BC, OTHER | LOC: M SOG 08:29 | PROVIDERS: ATTEND Physician Assistant | DX: S82.852D Displaced trimalleolar fracture of left lower leg, subsequent encounter for closed fracture with routine healing (principal) ==

== ENCOUNTER → 2025-10-07 | Outpatient (CLI) | payer MEDICARE, BC, OTHER | LOC: M SOG 07:40 | PROVIDERS: ATTEND Physician Assistant | DX: S82.852D Displaced trimalleolar fracture of left lower leg, subsequent encounter for closed fracture with routine healing (principal); Y93.9 Activity, unspecified; Y92.9 Unspecified place or not applicable ==